=== PATIENT | male | born 1970 | race Caucasian/White ===

== ENCOUNTER 2018-05-25 00:19 | Emergency (ER) | payer OTHER, SELFPAY ==
[2018-05-25] VITALS (10 sets, daily range): BP systolic 91–124; BP diastolic 56–83; PULSE 49–83; RESP 13–19; TEMP 37.3; O2SAT 96–99; BMI 26.3
--- NOTE | 2018-05-25 00:20 | ED.RN ---
RN CALLED FOR EKG, NO OLD EKGS IN MUSE
--- NOTE | 2018-05-25 00:36 | ED.RN ---
PT WITH PERIOD OF BRADYCARDIA. PT REPORTS DIZZINESS, BECAME PALE AND DIAPHORETIC. PT PLACED ON 2L NC. INSTRUCTED TO LAY HEAD BACK AND TAKE DEEP BREATHS. THIS RN CALLED FOR REPEAT EKG And notified dr. carbone. dr. carbone at bedside with pt.
--- NOTE | 2018-05-25 00:42 | EKG12_ITS ---
Test Reason : CP Blood Pressure : / mmHG Vent. Rate : 082 BPM Atrial Rate : 082 BPM P-R Int : 170 ms QRS Dur : 092 ms QT Int : 376 ms P-R-T Axes : 046 044 033 degrees QTc Int : 439 ms Normal sinus rhythm Incomplete right bundle branch block Cannot rule out Inferior infarct , age undetermined Abnormal ECG Confirmed by MINERVA GOTTI ([id number]), manuscript editor JEIMY MORRISON ([id number]) on 05/28/2018 1:27:04 PM Referred By: LAUREN Confirmed By:MINERVA GOTTI
--- NOTE | 2018-05-25 00:42 | RAD_ITS ---
STUDY: X-RAY CHEST REASON FOR EXAM: Male, 48 years old. Chest pain TECHNIQUE: Single frontal view of the chest. COMPARISON: None. FINDINGS: Chronic interstitial lung changes without superimposed acute alveolar disease. There is no demonstrated pleural abnormality. Normal size heart. Normal mediastinum and maryam. Normal visualized pulmonary arteries. Normal visualized aortic arch and descending thoracic aorta. Normal visualized thoracic spine. Normal visualized ribs, clavicles, and shoulders. There is no demonstrated abnormality of the visualized soft tissue structures of the upper abdomen. RAD/Chest 1 View (Portable) IMPRESSION: Chronic interstitial lung changes without superimposed acute alveolar disease. Electronically Signed: Trent Dupont MD at 1:16 EST Tel , Service support ,
--- NOTE | 2018-05-25 00:44 | ED.VIS.GEN ---
History of Present Illness Chief Complaint: Chest Pain Informant: Patient, Family Onset: Hours - 6 Context: Gradual Onset - at rest Timing: Continuous Quality: ache Location: epigastric / lower central chest Current Severity: Mild Maximum Severity: Moderate Worsened by: deep breathing somewhat Relieved by: nothing in particular Associated Symptoms: left shoulder pain (first symptom), nausea Narrative: Patient has never had these symptoms before. No past medical history, non-smoker. 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 Denies any numbness. No pain in his jaw or into his back, no sharp tearing pains. No recent travel, hospitalization, or surgery. No leg pain or swelling. No history of DVT or PE. Prior to my seeing the patient, EKG was performed, then an IV was placed and blood was drawn and soon thereafter he started feeling lightheaded, he got sweaty and felt like he was going to pass out. He became bradycardic into the 40s, he did not lose consciousness. He states he has had a reaction like that before when he was shown a needle. On the rhythm strip, his IA interval was consistent and normal-appearing. He gradually recovered while I was at the bedside to a normal heart rate without any changes in morphology. Past Medical History - Allergies and Home Meds Allergies/Adverse Reactions: Allergies No Known Allergies Allergy (Verified 05/25/18 00:21) Primary Care Physician: Juan Valdez MD [Primary Care Provider] - Past Medical History: None Surgical History: no surgical history Lives: Spouse/ Significant Other Smoking Status: Never smoker Drugs: None Review of Systems General: Reports: Sweats. Denies: Chills, Fever Eyes: Denies: Visual changes - bilaterally, Diplopia ENT: Denies: Rhinorrhea, Sore throat Cardiovascular: Reports: Chest pain. Denies: Palpitations, Heart racing Respiratory: Denies: Dyspnea, Cough, Dyspnea on exertion Gastrointestinal: Reports: Nausea. Denies: Abdominal pain, Vomiting, Diarrhea, Melena, Hematochezia Genitourinary: Denies: Dysuria, Hematuria, Frequency Musculoskeletal: Reports: Extremity Pain - left shoulder. Denies: Neck pain, Back pain Skin: Denies: Rash, Wounds Neurological: Denies: Headache, Weakness, Numbness Physical Exam Vital Signs/Narrative: Vital Signs Temp Pulse Resp BP Pulse Ox 05/25/18 00:36 49 L 17 91/56 L 99 05/25/18 00:21 99.1 F 83 18 124/83 H 97 Inital Vital Signs reviewed: Yes General: Well nourished, Well developed, No Acute Distress Head: Normocephalic, Atraumatic Eyes: Perrl, EOMI ENT: Moist mucous membranes, No rhinorrhea Neck: Supple, Nontender Cardiovascular: Regular rate, Regular rhythm, No murmurs, Normal S1, Normal S2 Respiratory: No distress, CTA bilaterally, Chest nontender, - - no splinting on deep inspiration Abdomen: Soft, Nontender, Nondistended, Normal bowel sounds Back: Nontender, Normal Inspection Extremities: Nontender, No edema. Negative for: Calf Tenderness Skin: Normal color, No rash, No Trauma, - - clammy during exam Neurological: Alert, Oriented x3, Cranial nerves II-XII grossly intact, Normal Strength, Normal Sensation Psychological: Normal affect, Normal Mood Diagnostic/Tx/Re-eval Impressions Chest X-Ray 05/25/18 00:42 IMPRESSION: Chronic interstitial lung changes without superimposed acute alveolar disease. Electronically Signed: Trent Dupont MD at 1:16 EST Tel , Service support , 05/25/18 00:42 Chest 1 View (Portable) [RAD] Stat Laboratory Results 05/25/18 05/25/18 05/25/18 00:30 00:30 00:30 WBC 8.8 RBC 4.97 Hgb 15.6 Hct 46.1 MCV 92.8 MCH 31.4 MCHC 33.8 RDW 12.9 RDW Differential 43.2 Plt Count 243 MPV 9.5 Immature Gran % (Auto) 0.200 Neut % (Auto) 74.9 H Lymph % (Auto) 14.0 L [place] % (Auto) 8.8 Eos % (Auto) 2.0 Baso % (Auto) 0.1 Absolute Neuts (auto) 6.6 Absolute Lymphs (auto) 1.23 Total Counted Not Reportable D-Dimer Quant (PE/DVT) < 0.27 L Sodium 139 Potassium 3.6 Chloride 104 Carbon Dioxide 29.0 Anion Gap 6 BUN 19 H Creatinine 1.25 Estim Creat Clear Calc 77.60 Est GFR (MDRD) Af Amer 79 Est GFR (MDRD) Non-Af 65 BUN/Creatinine Ratio 15.2 Glucose 98 Calcium 8.3 L Troponin I < 0.015 05/25/18 03:30 WBC RBC Hgb Hct MCV MCH MCHC RDW RDW Differential Plt Count MPV Immature Gran % (Auto) Neut % (Auto) Lymph % (Auto) Port[place] % (Auto) Eos % (Auto) Baso % (Auto) Absolute Neuts (auto) Absolute Lymphs (auto) Total Counted D-Dimer Quant (PE/DVT) Sodium Potassium Chloride Carbon Dioxide Anion Gap BUN Creatinine Estim Creat Clear Calc Est GFR (MDRD) Af Amer Est GFR (MDRD) Non-Af BUN/Creatinine Ratio Glucose Calcium Troponin I < 0.015 - Rhythm Strip Rhythm Strip: Sinus Rhythm Rate: 70 Ectopy: None - EKG Initial EKG Interpretation: Sinus Rhythm, No Acute Injury Pattern, - - RSR' V1. Isolated Q waves III. Otherwise, nml EKG and nml axis. Prior: No Prior - Medical Decision Making Patient has a RIZWANA risk score of 0 and a heart score of 2, 1 for age and 1 for history. His troponin is negative and his EKG is normal. He preferred not to be admitted when offered, so we performed a 3-hour repeat troponin, which was also negative for a delta of 0. He did have some mild improvement with nitroglycerin but still felt the discomfort, it was in the same location, central caudal chest, and somewhat pleuritic but not sharp. His d-dimer is negative, ruling out pulmonary embolism in context, in addition to DVT which he has no symptoms of. I gave him a GI cocktail, it did not seem to make a big difference although he overall felt better with continued observation in the ED. He had taken several ibuprofen prior to coming, did not seem to make a big difference, this is unlikely pleurisy but it could be esophageal in nature. I think he is stable to be discharged home given the heart pathway; this gives him less than 1% risk of an acute myocardial event in the next 30 days, he was advised to follow-up and will likely need an outpatient cardiac stress test. He understands this and is comfortable with this plan. ED Disposition - Plan for ED Patient: Disposition: Home or Assisted Living Diagnosis: Chest pain, unspecified Instructions: ED Chest Pain Atypical Unkn Cause Referrals: Juan Valdez MD [Primary Care Provider] - (call for appt this or next week)
[2018-05-25] MEDS: Aspirin 81 MG TAB.CHEW 162 MG PO (00:51)
[2018-05-25 00:57] LABS: Absolute Lymphocyte Count 1.23 X10^3/ul (0.83-4.51); Absolute Neutrophil Count 6.6 X10^3/uL (2.0-7.7); Basophil# 0.01 X10^3/uL; Basophil% 0.1 % (0-1); Eosinophil# 0.18 X10^3/uL; Hematocrit 46.1 % (40-54); Hemoglobin 15.6 g/dl (13.0-16.5); Lymphocyte # 1.23 X10^3/ul (4.0); Mean Corp Hgb Conc 33.8 g/gl (32-36); Mean Corpuscular Hgb 31.4 pg (27.0-32.0); Mean Corpuscular Volume 92.8 fL (80-94); Mean Platelet Vol. 9.5 fl (6.2-12.0); Monocyte# 0.77 X10^3/uL; Monocyte% 8.8 % (0-10); Neutrophil # 6.58 X10^3/uL (2.7-7.7); Neutrophil % 74.9 % (47-70); Platelet Count 243 K/mm3 (150-450); RBC Distribution Width CV 12.9 % (11.6-14.6); RBC Distribution Width SD 43.2 fl (35.1-43.9); Red Blood Count 4.97 M/mm3 (4.6-6.2); White Blood Count 8.8 K/mm3 (4.4-11.0)
[2018-05-25 00:58] LABS: POSITIVE COUNT NO; POSITIVE DIFFERENTIAL NO; POSITIVE MORPHOLOGY NO
[2018-05-25 01:04] LABS: D-Dimer Quantitative (DVT/PE) < 0.27 FEU/ug/m (0.27-0.49)
[2018-05-25 01:10] LABS: Anion Gap 6 (5-15); BUN 19 mg/dL (7-18); BUN/Creat Ratio 15.2 RATIO (10-20); Calcium,Total 8.3 mg/dL (8.5-10.1); Chloride 104 mmol/L (98-107); Creatinine, Serum 1.25 mg/dL (0.70-1.30); EST Glomerular Filtration Rate 65 mL/min (>60); Est Glom Filt Rate - Afr Amer 79 mL/min (>60); Glucose 98 mg/dL (74-106); Potassium 3.6 mmol/L (3.5-5.1); Sodium Level 139 mmol/L (136-145)
[2018-05-25] MEDS: 0.9% Normal Saline 1,000 ML 1000 ML IV (01:12)
[2018-05-25] MEDS: Ondansetron 4 MG/2 ML Vial IV (01:23)
[2018-05-25] MEDS: Mag Hydrox/Al Hydrox/Simeth 30 ML UDC PO (02:41)
== END 2018-05-25 04:21 | disposition home or self-care (01) ==
PROVIDERS: Emergency Provider Emergency Medicine; Family Provider Family Medicine; PCP Family Medicine
DX: R07.9 Chest pain, unspecified (principal); M25.512 Pain in left shoulder; R11.0 Nausea
CPT/HCPCS: 71045; 80048; 84484; 85025; 85379; 93005; 96361; 96374; 99285; J7030; A4216; J2405

== ENCOUNTER 2021-03-28 16:02 | Outpatient (CLI) | payer OTHER, SELFPAY | END 2021-03-28 23:59 | disposition home or self-care (01) | LOC: LABSPEC 16:02 | PROVIDERS: PCP Family Medicine; Visit Provider Nurse Practitioner Family | DX: Z00.00 Encounter for general adult medical examination without abnormal findings (principal) ==

== ENCOUNTER 2023-02-13 07:26 | Outpatient (RCR) | payer OTHER, SELFPAY ==
--- NOTE | 2023-02-13 08:15 | HP.PTEVAL_ITS ---
Patient's Visit Information Visit Information Visit Information: REGI PHIPPS is a 52 year old M referred to Physical Therapy by Dr. Cory Gorman MD with a diagnosis of rupture L biceps tendon head.. Date of Evaluation: 02/13/23 Physical Therapist: Moshe Schuster, DPT, OCS, CSCS Visit Plan Frequency: 1-2x /Week Duration: 4-6 Weeks Plan: 1-2x/week for 4 weeks in plan to work on management, strength cuff and positioning. Pt wishes to hold on therapy until after MRI and will call at that point. if returns, will treat with education, strength cuff and posture. Subjective Subjective: Needs MRI on shoulder and will need four weeks of PT. 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 That was 3 months ago. Family doctor told him to take ibuprofen adn put in a sling while out of town. Got annette horses in muscle when he tried to use it. Orthos said live with it unless it gives him discomfort. No prior shoulder pain. Played softball, worked and pain kept getting worse. Now has hard time sleeping. No pain at rest. Does have pain lifting or doing job. 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 Can lift by body but not away from body. Discomfort with dressing also. Pain L shoulder: Pain Intensity (Out of 10): 0 Pain Intensity Range: 0 and 2 Objective Objective: Pt ambulates and transfers I therapy without difficulty. No pain at rest. Full aROM B shoulders and elbows and wrists without pain except long lever arm abd and end range flexion in anterior shoulder. Protracted scap posture and forward head. Tender to touch L anterior shoulder near biceps tendon groove. ball of muscle in L bicep area not present on R. reflexes 2/3 bi and triceps. sensation UE WNL to gross light touch. strength thumb wrist and elbow 5/5 without pain. shoulder flexion 4 and slight pain LLA, abduction 4- L and pain LLA. R side 5/5 without pain. scapular ROM WNL cervical aROM WFL and without pain. Balance/Special Test Scores Quick DASH Score: 34.0900 Goals Goal 1:: I appropriate management of condition including strength L shoulder and posture Goal Time Frame: 4-6 Weeks Goal 2:: Pain free at night to sleep through night Goal Time Frame: 4-6 Weeks Goal 3:: 15 quick dash or better Goal Time Frame: 4-6 Weeks Rehabilitation Potential Physical Therapy Diagnosis: pain in L shoulder with sleeping and usage of arm. Rehabilitation Potential: Questionable Anticipated Interventions Patient/Client Instruction: Educate patient on: Condition and Plan of Care For the Purpose of:: To decrease pain and To decrease swelling/inflammation Therapeutic Exercise to Include: Strength training and Postural training For the Purpose of:: To decrease pain, To decrease swelling/inflammation and To improve nutrient delivery to tissue Text: Thank you for the opportunity to evaluate your patient. For Medicare and Medicare HMO plans, please review the plan of care and approve it. It will need to be FAXED BACK to us at [phone] for Medicare purposes. For Medicare only, by signing this I certify the plan of care. Please let me know if there are questions or concerns regarding this plan of care. Physician Signature: Date:
--- NOTE | 2023-04-06 08:21 | HP.PT.NRP ---
Patient Information Patient Information: REGI PHIPPS was seen in my office for initial evaluation on 02/13/23. The following Plan of Care was established for this patient: POC Established Initial Frequency: 1-2x /Week Initial Duration: 4-6 Weeks Anticipated Interventions Patient/Client Instruction: Educate patient on: Condition and Plan of Care For the Purpose of:: To decrease pain and To decrease swelling/inflammation Therapeutic Exercise to Include: Strength training and Postural training For the Purpose of:: To decrease pain, To decrease swelling/inflammation and To improve nutrient delivery to tissue Last Seen Last Seen: This patient was last seen in our office 02/13/23. Pertinent comments regarding their Physical therapy will appear below: Pt seen for IE and no further visits attended At this point, it has been over 6 weeks and I will discontinue due to nonattendance. At this point I will be discontinuing this patient from physical therapy. I would be happy to see this patient again in the future if found appropriate by the physician. Thank you! Moshe Schuster, DPT, OCS, CSCS Balance/Gait/Functional tests Balance/Special Test Scores Quick DASH Score: 34.0900
== END 2023-02-13 19:00 | disposition home or self-care (01) ==
LOC: PT 07:26
PROVIDERS: PCP Family Medicine; Visit Provider Orthopaedic Surgery Sports Medicine
DX: S46.112D Strain of muscle, fascia and tendon of long head of biceps, left arm, subsequent encounter (principal); M25.512 Pain in left shoulder
CPT/HCPCS: 97161

== ENCOUNTER → 2023-03-06 | Outpatient (CLI) | payer OTHER, SELFPAY ==
--- NOTE | 2023-03-06 07:45 | RAD_ITS ---
STUDY: X-RAY - ORBITS REASON FOR EXAM: Male, 52 years old. This study is being performed as a clearance examination for exclusion of orbital metal, prior to the performance of an MRI examination. TECHNIQUE: 2 view(s) of the orbits were obtained. COMPARISON: None. FINDINGS: Normal bilateral orbits without a metallic orbital foreign body. Normal visualized facial bones. Normal paranasal sinuses. The soft tissue structures are unremarkable. RAD/Orbits for Foreign Body IMPRESSION: No demonstrated metallic orbital foreign body. The patient is cleared for an MRI examination. Electronically Signed: Chaitanya Swan MD at 8:18 EST ,
--- NOTE | 2023-03-06 07:46 | MRI_ITS ---
STUDY: MRI LEFT SHOULDER REASON FOR EXAM: Male, 52 years old. Rule out cuff tear, history of LHB rupture. TECHNIQUE: Standardized fat and water weighted pulse sequences were obtained in all 3 orthogonal planes. COMPARISON: Left shoulder radiographs dated 10/28/2022. FINDINGS: There is mild supraspinatus, infraspinatus, and subscapularis tendinosis without a full-thickness tear. Normal teres minor tendon. Normal supraspinatus muscle. Normal infraspinatus muscle. Normal subscapularis muscle. Normal teres minor muscle. There is subchondral cyst formation in the posterior-inferior glenoid. The intracapsular long biceps tendon is absent, compatible with a tear/rupture. Normal humeral head and visualized proximal humerus. Normal labrum. Normal capsulo-ligamentous complex. There is minimal acromioclavicular arthrosis. There is a Type II morphology (curved), with a neutral orientation. There is no subacromial-subdeltoid bursal fluid. Normal visualized coracohumeral and coracoacromial ligaments. Normal quadrilateral space. Normal axillary space. Normal deltoid muscle. Normal trapezius muscle. MRI/Upper Ext Joint Only(Routine) IMPRESSION: Mild supraspinatus, infraspinatus, and subscapularis tendinosis without a full-thickness rotator cuff tear. Minimal acromioclavicular arthrosis. Subchondral cyst formation in the posterior-inferior glenoid. Intracapsular long biceps tendon tear/rupture. Electronically Signed: Omar Atkinson MD at 9:54 EST ,
== END | disposition home or self-care (01) ==
PROVIDERS: PCP Family Medicine; Referring Provider Orthopaedic Surgery Sports Medicine; Visit Provider Orthopaedic Surgery Sports Medicine
DX: S46.112A Strain of muscle, fascia and tendon of long head of biceps, left arm, initial encounter (principal); M25.512 Pain in left shoulder; X58.XXXA Exposure to other specified factors, initial encounter
CPT/HCPCS: 70030; 73221

== ENCOUNTER 2023-05-27 05:28 | Day surgery (SDC) | payer OTHER, SELFPAY ==
[2023-05-27] VITALS (7 sets, daily range): BP systolic 122–135; BP diastolic 81–99; PULSE 63–91; RESP 15–16; TEMP 36.2–36.3; O2SAT 92–97; BMI 28.0
--- NOTE | 2023-05-27 06:32 | EKG12_ITS ---
Test Reason : PRE-OP Blood Pressure : / mmHG Vent. Rate : 062 BPM Atrial Rate : 062 BPM P-R Int : 178 ms QRS Dur : 100 ms QT Int : 408 ms P-R-T Axes : 022 017 006 degrees QTc Int : 414 ms Normal sinus rhythm Nonspecific T wave abnormality Abnormal ECG Confirmed by Stanislav Gonzalez ([id number]), newspaper editor ASH MORGAN ([id number]) on 06/02/2023 8:20:46 AM Referred By: Juan Valdez Confirmed By:Stanislav Gonzalez
[2023-05-27] MEDS: Lactated Ringers 1,000 ML 15 ML IV (06:38)
[2023-05-27 06:52] LABS: Hematocrit 47.9 % (40-54); Hemoglobin 16.3 g/dL (13.0-16.5); Mean Corpuscular Hgb 30.8 pg (27.0-32.0); Mean Corpuscular Volume 90.5 fL (80-94); Mean Platelet Vol. 9.1 fl (6.2-12.0); Platelet Count 295 K/mm3 (150-450); RBC Distribution Width CV 12.9 % (11.6-14.6); RBC Distribution Width SD 42.4 fl (35.1-43.9); Red Blood Count 5.29 M/mm3 (4.6-6.2); White Blood Count 6.5 K/mm3 (4.4-11.0)
--- NOTE | 2023-05-27 07:21 | HP.PCM_ITS ---
HPI - General HPI Narrative REGI PHIPPS, is a 53 M who presents for left shoulder arthroscopy, subacromial decompression and biceps tenodesis. No changes to history and physical exam. Patient pending a block. I marked the left shoulder updated the consent. Risks alternatives benefits discussed as well as postop instructions and narcotic counseling discussed with the patient as well as his . They both understand no further questions or concerns okay to proceed. MR#: [id number] Acct: [id number] Name: REGI PHIPPS Rep #: [id number] : 1970 Provider: Dr. Cory Gorman MD Age/Sex: 52/M [place] [facility] [place] Status: Signed Intake Vital Signs 10/28/2308:13 Height 6 ft Intake Visit Reasons: LEFT BICEP Chief Complaint: MRI review Allergies Penicillins Adverse Reaction (Severe, Verified 03/19/23 15:13) Hives Medications ibuprofen 200 mg tablet 600 mg PO Q6H PRN 10/28/22 [History Confirmed 01/29/23] omeprazole 20 mg capsule,delayed release 20 mg PO DAILY 10/28/22 [History Confirmed 01/29/23] PFSH Medical History Bilateral primary osteoarthritis of knee Left knee pain Left shoulder pain Right knee pain Rupture of left long head biceps tendon Surgical History Hx of vasectomy Social History Smoking Status: Never smoker alcohol intake: current alcohol intake frequency: a few times a week HPI LEFT BICEP Details: This documentation accurately reflects the service provided and the decisions made by me, Dr. Cory Gorman MD 03/19/23 1413. Part of today?s visit was documented by [ ], acting as scribe. REGI PHIPPS is a 52 year old M here today for FU L shoulder MRI to rule out additional pathologies after LHB rupture. 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 Ortho Exam General General: Yes no acute distress Neurologic: Yes alert and Yes oriented x3 Psychologic: Yes reasonable and appropriate Left Shoulder Skin/Wound: Yes CDI, Yes ecchymosis, No erythema and Yes swelling Testing: Yes Hawkin's, Yes Neer's, Yes TTP Biceps, No TTP AC Joint, No Drop Arm, Yes Yergason's, Yes AROM-Forward Elevation 0-180, Yes PROM-External Rotation at side 0-60, No Apprehension Test, No Sulcus Sign, No translation, Yes empty can and Yes belly press normal SHOULDER: 'hung' deformity, distalization of biceps, pain at LHB and mildly at biceps muscle, normal hook test, intact distal biceps, nvi, strong cuff function 07/25 FE and er. Supplemental Info [facility] [address] [place] [address] Upper Ext Joint Only(Routine) MR#: [id number] Acct: [id number] Name: REGI PHIPPS Rep #: [id number] : 1970 M 52 From: Omar Atkinson MD PCP: Dr. Juan Valdez MD Status: REG CLI Study: Upper Ext Joint Only(Routine) Date of Exam: 03/06/23 Exam# [id number] Ordering Dr: Cory Gorman MD STUDY: MRI LEFT SHOULDER REASON FOR EXAM: Male, 52 years old. Rule out cuff tear, history of LHB rupture. TECHNIQUE: Standardized fat and water weighted pulse sequences were obtained in all 3 orthogonal planes. COMPARISON: Left shoulder radiographs dated 10/28/2022. FINDINGS: There is mild supraspinatus, infraspinatus, and subscapularis tendinosis without a full-thickness tear. Normal teres minor tendon. Normal supraspinatus muscle. Normal infraspinatus muscle. Normal subscapularis muscle. Normal teres minor muscle. There is subchondral cyst formation in the posterior-inferior glenoid. The intracapsular long biceps tendon is absent, compatible with a tear/rupture. Normal humeral head and visualized proximal humerus. Normal labrum. Normal capsulo-ligamentous complex. There is minimal acromioclavicular arthrosis. There is a Type II morphology (curved), with a neutral orientation. There is no subacromial-subdeltoid bursal fluid. Normal visualized coracohumeral and coracoacromial ligaments. Normal quadrilateral space. Normal axillary space. Normal deltoid muscle. Normal trapezius muscle. MRI/Upper Ext Joint Only(Routine) IMPRESSION: Mild supraspinatus, infraspinatus, and subscapularis tendinosis without a full-thickness rotator cuff tear. Minimal acromioclavicular arthrosis. Subchondral cyst formation in the posterior-inferior glenoid. Intracapsular long biceps tendon tear/rupture. Electronically Signed: Omar Atkinson MD at 9:54 EST Reading Location ID and State: [facility] / [place] , Service support , Coding Level of Care Code Off vis,est,level 3 Diagnoses Left shoulder pain M25.512 Rupture of left long head biceps tendon S46.112A Assessment and Plan Assessment and Plan (1) Left shoulder pain: Status: Acute Plan: 52-year-old man with continued pain after a long head of biceps rupture left shoulder. MRI shows no cuff tear. Surgery would be in the form of a left shoulder arthroscopy, subacromial decompression and biceps tenodesis. Tenodesis a bit unreliable in terms of fixing biceps cramping and pain results favorable in about half of patients. Some of his pain could be coming as well from impingement syndrome so do recommend arthroscopy at the time of subpectoral biceps tenodesis. Pros and cons risks and benefits were discussed with the patient including but not limited to infection, pain, stiffness, bleeding, damage to surrounding structures, neurovascular injury, recurrence or retear, failure or wear of hardware or fixation, instability, fracture, deep vein thrombosis and pulmonary embolism, anesthetic risks, , patient dissatisfaction, need for further surgery and other risks. Patient understood and wished to proceed with surgery, and signed the informed consent documentation. Patient wishes to proceed in May, signed consent today. (2) Rupture of left long head biceps tendon: Status: Acute [facility] Medical History (Updated 05/12/23 @ 09:17 by Shereen Aguilar) Alcohol use Back pain Bilateral primary osteoarthritis of knee Gastric reflux History of pain when walking History of stress test Injury of head and neck Left knee pain Left shoulder pain Leg cramps Non-smoker Redness of skin Right knee pain Rupture of left long head biceps tendon Shortness of breath on exertion Home Medications ibuprofen 200 mg tablet 600 mg PO Q6H PRN pain 10/28/22 [History Last Taken Unknown] omeprazole 20 mg capsule,delayed release 20 mg PO DAILY 10/28/22 [History Last Taken Unknown] ascorbic acid (vitamin C) 1,000 mg tablet,extended release (C Complex) 1,000 mg PO DAILY 05/12/23 [History Last Taken Unknown] zinc gluconate 50 mg tablet 100 mg PO DAILY 05/12/23 [History Last Taken Unknown] Allergy/AdvReac Type Severity Reaction Status Date / Time Penicillins AdvReac Severe Hives Verified 05/27/23 06:02 Surgical History (Updated 05/12/23 @ 09:17 by Shereen Aguilar) Hx of vasectomy Social History Smoking Status: Never smoker alcohol intake: current alcohol intake frequency: a few times a week Vital Signs Vital Signs Vital Signs: 05/27/23 06:10 05/27/23 06:10 Temperature 97.2 F L Temperature Source Temporal Pulse Rate 63 Respiratory Rate 16 Respiratory Pattern Normal Blood Pressure 125/81 H Blood Pressure Mean 95 Blood Pressure Source Monitor Blood Pressure Position Semi-Fowlers Blood Pressure Location Right Arm Pulse Ox 94 Oxygen Delivery Method Room Air Weight Weight: 207 lb 3.752 oz Body Mass Index (BMI) 28.0 Results Lab / Micro Data 05/27/23 06:36 Labs: Laboratory Results - last 24 hr 05/27/23 06:36: WBC 6.5, RBC 5.29, Hgb 16.3, Hct 47.9, MCV 90.5, MCH 30.8, MCHC 34.0, RDW Std Deviation 42.4, RDW Coeff of Lizette 12.9, Plt Count 295, MPV 9.1
[2023-05-27] MEDS: Cefazolin 2 GM in 0.9% Normal Saline (100mL Bag) 100 ML IV (07:30)
[2023-05-27] MEDS: Epinephrine (1 mg/ml) 1 MG/ML VIAL (08:19)
--- NOTE | 2023-05-27 08:52 | OP.PCM_ITS ---
Problems Associated Problem List Diagnoses (1) Left shoulder pain: (2) Rupture of left long head biceps tendon: (3) Impingement of left shoulder: Report of Operation Date of Procedure: 05/27/23 Pre-Operative Diagnosis: Left shoulder impingement syndrome and rupture of the l tex head of the biceps tendon Post-Operative Diagnosis: Same Surgery/Procedure Performed:: Left shoulder arthroscopy, subacromial decompression, limited debridement, biceps tenodesis separate open incision subpectoral Surgeon: Cory Gorman Type of Anesthesia: Block,Regional and General Anesthesiologist: Leighton Go Estimated Blood Loss (mL): 20 Description of Procedure: Patient brought to the operating room theater. Placed supine on the table. General anesthesia induced. 2 g IV Ancef administered prior to the start of the procedure. All bony prominences padded. Patient transferred left side up lateral decubitus beanbag positioner. Axillary roll placed. SCDs on the legs. Upper extremity prepped and draped in the usual sterile fashion with chlorhexidine-based prep solution allowing over 3 minutes drying time prior to draping. 10 pounds of inline traction with the arm in 35 degrees of abduction was used. Preoperative timeout performed to confirm the site patient and the surgery. Began by doing a arthroscopy of the shoulder. Used a standard posterior arthroscopy portal to insert the arthroscope into the intra-articular portion of the shoulder. Cartilage on the glenoid and humeral head was normal. Slight fraying of the labrum especially superiorly where the long head biceps had torn. I performed inside-out spinal needle localized anterior portal through the rotator interval just posterior to the location of the biceps tendon. Did a gentle debridement of the anterior and superior labrum. Also did debridement slightly at the undersurface rotator cuff with some mild synovitis and used cautery to remove any synovitis in that area. Undersurface of the rotator cuff appeared normal as did the subscapularis. I took arthroscopy pictures and saved them onto the system throughout. Gutter - no loose body. Next I placed the scope in the subacromial space established a lateral portal. I did a debridement of a moderate amount of inflammatory bursitis down to the gutters completely inside the subacromial space. I did a subacromial decompression with a high-speed simran instrument for about 3 mm left the CA ligament intact. Mild downsloping the acromion. This was corrected to flat undersurface. Probed the rotator cuff tendon and this was found to be intact with no tears. Arthroscope was withdrawn. Next I turned my attention to the biceps tenodesis open part of the operation. Made a small 1.5 inch incision centered over the proximal anteromedial aspect of the humerus directly over the long head of the biceps tendon rupture and the site of the Flaco deformity.. Dissection down through skin and subcutaneous tissue to meticulous hemostasis. I retracted and protected the cephalic vein I retracted this laterally. Identified the long head of the biceps. I released a quite bit of scar tissue to mobilize this. In the groove it was completely adhesed and impossible to release without damage to the subscapularis, therefore I cut the biceps with as much length as possible. I delivered this through the skin incision. I placed an Allis clamp on the end of this. I used the Arthrex 'tension tight' button with #5 braided nonabsorbable suture and a fiber link co nfiguration with luggage tag type stitch and then passed the suture from anterior to posterior just distal to this for locking loop configuration. I then drilled unicortical hole just distal to the pectoralis major insertion. I ensured that this was under appropriate tension. I passed the suture through the tension type button. I passed the button through the unicortical hole flipped the button and delivered the tendon down to the repair site by pulling on the free end of the suture. This achieved good tension and repair of the tendon I cut the suture short and this was a knotless repair. I thoroughly irrigated the wounds followed by closure subcutaneous tissue with 2-0 Vicryl suture skin with 3-0 Monocryl. Skin cleaned with wet dry dressing followed application of Steri-Strips Adaptic 4 x 4 gauze ABD dressing tape and sling for the upper extremity. Patient woken up from a general anesthetic transferred off the operating table and taken to postanesthetic care unit in stable condition. All sponge and instrument counts were correct no complications. cpt 84919, 34029, [id number]? Complications none Admit VTE Documentation VTE Present on Admission: No VTE Mechan Device Prophylaxis: SCD's Reason prophylaxis not ordered:: Treatment Not Indicated Multi Select Codes Musculoskeletal Musculoskeletal CPT Codes: Other Procedure See Report
--- NOTE | 2023-05-27 09:02 | DCINST_ITS ---
Discharge Instructions Diet Discharge Diet: No restrictions Activity Discharge Activity: May Not Drive Ice area for (Minutes): 10 Lifting Restrictions: pendulums and elbow ROM 4x/day, no lifting over 1 pound Dressing / Incision Call your doctor if your incision/area has: Continuous Slow Oozing, Sudden Increased Bleeding, Increased Pain/ Swelling, Increased Redness, Foul Smelling Discharge and Swelling at the incision site Remove Dressing in: leave in place till F/U Cleanse incision/area with: Do not get Incision Wet Follow Up Care Please Follow Up With: Cory Gorman MD When: 2 days Test Results: Test results from this visit will be discussed in further detail at your follow- up appointment, if applicable. Discharge Plan Admission Attending Provider: Cory Gorman Primary Care Provider: Juan Valdez Instructions Patient Instructions: After Shoulder Arthroscopy Discharge Orders/Prescriptions Prescriptions: New oxycodone-acetaminophen [Endocet] 5-325 mg tablet 1 tab PO Q4H MDD 6 PRN (Reason: pain) 5 Days Qty: 30 0RF No Action omeprazole 20 mg capsule,delayed release(DR/EC) 20 mg PO DAILY ibuprofen 200 mg tablet 600 mg PO Q6H PRN (Reason: pain) C Complex 1,000 mg tablet extended release 1,000 mg PO DAILY zinc gluconate 50 mg tablet 100 mg PO DAILY Referrals / Follow Up: Juan Valdez MD [Primary Care Provider] - Cory Gorman MD [Med Staff - Active Staff] - Disposition Disposition (needs filled in before D/C Order can be placed): Home, Self Care
== END 2023-05-27 11:47 | disposition home or self-care (01) ==
LOC: SDC 05:29 → AC 05:31
PROVIDERS: Anesthesiology; PCP Family Medicine; Referring Provider Family Medicine; Visit Provider Orthopaedic Surgery Sports Medicine
PROC: (CPT 29805; principal; 2023-05-27 07:10)
DX: M75.42 Impingement syndrome of left shoulder (principal); S46.112A Strain of muscle, fascia and tendon of long head of biceps, left arm, initial encounter; M19.012 Primary osteoarthritis, left shoulder; M17.0 Bilateral primary osteoarthritis of knee; Z79.1 Long term (current) use of non-steroidal anti-inflammatories (NSAID); Z79.899 Other long term (current) drug therapy
CPT/HCPCS: 29826; 29822; 23430; 01630; 64415; 85027; 93005; C1713; J7120; J2405

== ENCOUNTER 2024-03-20 17:36 | Observation (INO) | payer OTHER, SELFPAY ==
[2024-03-20] VITALS (13 sets, daily range): BP systolic 116–144; BP diastolic 60–89; PULSE 73–93; RESP 16–19; TEMP 36.6–37; O2SAT 94–99; BMI 27.1
--- NOTE | 2024-03-20 17:41 | ED.VIS.GI ---
HPI HPI - GI History of Present Illness Chief Complaint: Abd Pain Informant: patient Abdominal Pain/Flank Pain Onset: Today Context: Gradual Onset Timing: Continuous Quality: Cramping Location: RLQ Worsened by: - (Palpation) Relieved by: Nothing Nausea/Vomiting/Emesis GI Symptom: Positive for Nausea; Negative for Vomiting Diarrhea/Melena/Hematochezia GI Symptom: Negative for Diarrhea, Melena or Hematochezia Associated Symptoms Associated Symptoms: Negative for Dysuria, Frequency or Hematuria Narrative Narrative: Patient presents with abdominal pain that began today. Patient states it is gradually getting worse. Patient states the pain is over the right lower abdomen. Patient describes it as cramping. Patient states it is worse with palpation. Patient states nothing seems to make it better. Patient admits to some nausea and decreased appetite. Patient denies any vomiting. Patient denies any diarrhea, melena, or hematochezia. Patient denies any urinary complaints. [facility] Medical History Impingement of left shoulder Alcohol use Redness of skin Back pain Injury of head and neck Gastric reflux Non-smoker Shortness of breath on exertion Leg cramps History of pain when walking History of stress test Left shoulder pain Bilateral primary osteoarthritis of knee Left knee pain Right knee pain Rupture of left long head biceps tendon Home Medications ?Medication ?Instructions ?Recorded ?Last Taken ?Type omeprazole 20 mg capsule,delayed 20 mg PO DAILY 10/28/22 Unknown History release ascorbic acid (vitamin C) 1,000 mg 1,000 mg PO DAILY 05/12/23 Unknown History tablet,extended release (C Complex) Allergy/AdvReac Type Severity Reaction Status Date / Time Penicillins AdvReac Severe Hives Verified 03/20/24 19:47 Surgical History History of shoulder surgery Hx of vasectomy Social History Smoking Status: Current every day smoker tobacco type: cigarettes alcohol intake: current alcohol intake frequency: a few times a week ROS ROS ED Constitutional Constitutional ED: Reports chills and subjective; Denies fever(s) Eyes Eyes: Denies blurry vision or change in vision ENT ENT ED: Reports sore throat; Denies rhinorrhea Cardiovascular Cardiovascular: Denies chest pain or palpitations Respiratory/Chest Respiratory/Chest: Denies cough or dyspnea Gastrointestinal Gastrointestinal: Reports abdominal pain and nausea; Denies vomiting Genitourinary Genitourinary ED: Denies dysuria or hematuria Musculoskeletal Musculoskeletal: Denies back pain or neck pain Integumentary Denies abscess or rash Neurologic Neurologic: Denies headache(s) or weakness Allergic/Immunologic Allergic/Immunologic ED: Denies mouth swelling or urticaria EXAM Physical Exam Const Vital Signs: 03/20/24 17:37 03/20/24 18:39 03/20/24 19:00 Temperature 98.4 F 98.4 F 98.4 F Temperature Source Oral Oral Oral Pulse Rate 77 73 81 Respiratory Rate 16 18 16 Blood Pressure 144/89 H 126/89 H 126/78 H Blood Pressure Mean 107 101 94 Pulse Ox 99 97 96 Oxygen Delivery Method Room Air Room Air Room Air 03/20/24 19:25 Temperature 98.6 F Temperature Source Pulse Rate 82 Respiratory Rate 16 Blood Pressure 126/78 H Blood Pressure Mean 94 Pulse Ox 99 Oxygen Delivery Method Positive well nourished and well developed General Appearance ED: well developed and NAD HEENT Reports moist mucous membranes Neck supple and no JVD Resp normal respiratory effort and clear to auscultation bilaterally Cardio regular rate and regular rhythm GI non-distended Palpation: soft, tender RLQ, McBurney's point and Rovsing's sign and rebound tenderness present McBurney's point; Negative for guarding Back/Spine no CVA tenderness Neuro CN's II-XII intact bilaterally, moves all extremities and no sensory deficits noted Sensorium / Orientation: alert Motor Exam: strength 5/5 throughout Psych mental status grossly normal MDM MDM MDM Narrative Medical decision making narrative: Differential diagnosis includes appendicitis, mesenteric adenitis, ureteral calculus, viral gastroenteritis, urinary tract infection, pyelonephritis, and colitis. CBC will be obtained to assess for leukocytosis and anemia. Basic metabolic profile will be obtained to assess for electrolyte abnormality and renal function. Urinalysis will be obtained to assess for urinary tract infection and hematuria. CT scan of the abdomen and pelvis will be obtained to assess for appendicitis, mesenteric adenitis, and colitis. Lab Data Attestation: I reviewed the patient's lab results. Lab results narrative: CBC was reviewed. There is a leukocytosis of 14.4. The remainder is within normal limits. Basic metabolic profile was reviewed and was essentially within normal limits. Urinalysis was reviewed. There is no evidence of urinary tract infection or hematuria. Labs: Laboratory Results - last 24 hr 03/20/24 03/20/24 17:56 18:02 WBC 14.4 H RBC 5.15 Hgb 16.0 Hct 47.1 MCV 91.5 MCH 31.1 MCHC 34.0 RDW Std Deviation 42.7 RDW Coeff of [place] 12.7 Plt Count 272 MPV 9.1 Immature Gran % (Auto) 0.600 Neut % (Auto) 84.9 H Lymph % (Auto) 7.5 L [place] % (Auto) 5.4 Eos % (Auto) 1.3 Baso % (Auto) 0.3 Absolute Neuts (auto) 12.2 H Absolute Lymphs (auto) 1.07 Nucleated RBC % 0 Sodium 137 Potassium 3.4 L Chloride 105 Carbon Dioxide 28.0 Anion Gap 4 L BUN 21 H Creatinine 1.27 Estim Creat Clear Calc 72.13 Est GFR (MDRD) Af Amer 76 Est GFR (MDRD) Non-Af 62 BUN/Creatinine Ratio 16.5 Glucose 117 H Calcium 8.7 Urine Color Yellow Urine Clarity Clear Urine pH 6.0 Ur Specific [place] 1.015 Urine Protein Negative Urine Glucose (UA) Normal Urine Ketones Negative Urine Occult Blood 10 H Urine Nitrite Negative Urine Bilirubin Negative Urine Urobilinogen Normal Ur Leukocyte Esterase Negative Urine RBC 0-5 SEEN Urine WBC 0-5 SEEN Ur Squamous Epith Cells 0 SEEN Urine Bacteria RARE Urine Mucus RARE Radiography Diagnostic Testing: Clinical Impression(s) from Imaging Studies Abdomen/Pelvis CT 03/20/24 18:18 IMPRESSION: (NOT LISTED IN ORDER OF SIGNIFICANCE) Acute appendicitis. Other findings as above. Electronically Signed: Angelo Workman MD at 19:21 EST Reading Location ID and State: [facility] / [place] , Service support , ADDENDUM: 03/20/24 193 IMPRESSION: (NOT LISTED IN ORDER OF SIGNIFICANCE) Acute appendicitis. Other findings as above. N.B. : The above Results were Read Back by Angelo Workman MD to Moshe López DO, and understanding confirmed on 03/20/2024 19:24:14 (ET). Electronically Signed: Angelo Workman MD at 19:21 EST , CT scan of the abdomen pelvis was obtained. There is evidence of acute appendicitis. This was interpreted by the radiologist and was also independently reviewed by myself. Management Discussion w/another healthcare provider: Mortgage Servicing Specialist (Dr. Moise from general surgery) and Radiologist Treatment and Re-Evaluation :: Patient given IV fluids, morphine, and Zofran. Patient declined morphine. Patient was advised of his findings. Case was discussed with Dr. Moise. He will be in to evaluate the patient. Patient was given a dose of ertapenem. The patient will be taken to the operating room for appendectomy. Patient and family understand and are agreeable with the plan. All questions were answered. Discharge Plan Triage Chief Complaint: Abd Pain ED Provider: Moshe López Dx/Rx/DC Orders Clinical Impression: Acute appendicitis, Acute abdominal pain in right lower quadrant Primary Care Provider: Jeremiah Valdez Disposition Disposition: Acute Care Hospital [facility]
[2024-03-20 18:05] LABS: Absolute Lymphocyte Count 1.07 X10^3/uL (0.83-4.51); Absolute Neutrophil Count 12.2 X10^3/uL (2.0-7.7); Basophil# 0.05 X10^3/uL; Basophil% 0.3 % (0-1); Eosinophil# 0.19 X10^3/uL; Eosinophils% 1.3 % (0-5); Hematocrit 47.1 % (40-54); Lymphocyte # 1.07 X10^3/ul (0.83-4.51); Lymphocyte % 7.5 % (19-41); Mean Corpuscular Hgb 31.1 pg (27.0-32.0); Mean Corpuscular Volume 91.5 fL (80-94); Mean Platelet Vol. 9.1 fl (6.2-12.0); Monocyte# 0.77 X10^3/uL; Monocyte% 5.4 % (0-10); NRBC Flagged by Analyzer 0 % (0-5); Neutrophil % 84.9 % (47-70); Platelet Count 272 K/mm3 (150-450); RBC Distribution Width CV 12.7 % (11.6-14.6); RBC Distribution Width SD 42.7 fl (35.1-43.9); Red Blood Count 5.15 M/mm3 (4.6-6.2); White Blood Count 14.4 K/mm3 (4.4-11.0)
[2024-03-20] MEDS: 0.9% Normal Saline (1000mL) 1,000 ML 999 ML IV (18:06)
[2024-03-20] MEDS: Ondansetron 4 MG/2 ML Vial IV (18:06)
[2024-03-20 18:14] LABS: Squamous Epithelial Cells - UA 0 SEEN /hpf (0-5)
[2024-03-20 18:15] LABS: Color, Urine Yellow (Yellow); Glucose, Dipstick Normal (Normal); Ketone-Dipstick Negative (Negative); Leukocyte Esterase-Dipstick Negative /ul (Negative); Nitrite-Dipstick Negative (Negative); Occult Blood-Urine 10 /ul (Negative); Protein-Dipstick Negative (Negative); Specific Gravity, Urine 1.015 (1.002-1.030); Urine Bilirubin Dipstick Negative (Negative); Urine Clarity Clear (Clear); Urine Urobilinogen Normal (Normal)
--- NOTE | 2024-03-20 18:18 | CT_ITS ---
We are attempting to reach an attending provider to discuss findings. An addendum with communication details will be sent when the communication is complete. STUDY: CT Abdomen And Pelvis W/ Contrast Injection 03/20/2024 7:19 PM REASON FOR EXAM: Male, 53 years old. ABDOMINAL PAIN Right lower quadrant abdominal pain TECHNIQUE: Transaxial images were obtained without oral contrast, and IV 100mL Isovue-370 intravenous contrast. Individualized dose optimization techniques were used for this CT. COMPARISON: None FINDINGS: The visualized lung bases are unremarkable. The visualized portions of the heart are within normal limits. Unremarkable liver. Unremarkable gallbladder and extrahepatic biliary system. Unremarkable spleen. Unremarkable pancreas. Unremarkable bilateral adrenal glands. No acute findings of the right kidney. No acute findings of the left kidney. Unremarkable visualized stomach. Unremarkable small intestine. There are multiple colonic diverticula consistent with diverticulosis. There is a tubular, thick-walled appendix (16mm), consistent with acute appendicitis. Appendix is retrocecal. No abscess. There are no acute findings of the abdominal aorta. Unremarkable inferior vena cava. Unremarkable urinary bladder. There are prostatic calcifications. There is an umbilical hernia containing fat. Unremarkable osseous structures. CT/Abdomen/Pelvis W IV Cont ONLY IMPRESSION: (NOT LISTED IN ORDER OF SIGNIFICANCE) Acute appendicitis. Other findings as above. Electronically Signed: Angelo Workman MD at 19:21 EST ,
[2024-03-20 18:21] LABS: Anion Gap 4 (5-15); BUN 21 mg/dL (7-18); BUN/Creat Ratio 16.5 RATIO (10-20); Calcium,Total 8.7 mg/dL (8.5-10.1); Chloride 105 mmol/L (98-107); Creatinine, Serum 1.27 mg/dL (0.70-1.30); EST Glomerular Filtration Rate 62 mL/min (>60); Est Glom Filt Rate - Afr Amer 76 mL/min (>60); Estimated Creatinine Clearance 72.13 ml/min; Glucose 117 mg/dL (74-106); Potassium 3.4 mmol/L (3.5-5.1); Sodium Level 137 mmol/L (136-145)
[2024-03-20 18:22] LABS: Red Blood Cells-Urine 0-5 SEEN /hpf (0-5); White Blood Cells 0-5 SEEN /hpf (0-5)
[2024-03-20 18:24] LABS: Bacteria RARE /hpf (None Seen); Mucous, Urine RARE /hpf (<or=2+)
[2024-03-20] MEDS: Ertapenem Sod 1 GM in 0.9% Normal Saline (50mL MB+) 50 ML IV (19:46)
--- NOTE | 2024-03-20 20:14 | HP.PCM_ITS ---
HPI - General General Date of Admission: 03/20/24 Date of Service: 03/20/24 Chief Complaint: Acute onset right lower quadrant abdominal pain HPI Narrative REGI PHIPPS, is a 53 M who presents to [facility] with complaints of acute onset abdominal pain beginning between 4 and 5:00 this morning. He describes a crampy character to the pain. He found it strange that he got no relief after using the restroom and the pain only proved to be progressive. He confirms presence of some nausea, low-grade fevers, and poor appetite in association with the pain. He shares that he tried to apply a [place] ointment to his abdomen but as he rubbed his abdomen he found that the pain was very clearly localized in the right lower quadrant. Upon reaching this observation he shared his symptoms with his and she concluded that he must be checked out for possible appendicitis. Patient's ED workup notable for CBC with leukocytosis of 14.4. CT imaging of the abdomen pelvis was obtained showing evidence of acute appendicitis without abscess. Appendix was noted to measure 1.6 cm in diameter. Patient is relatively healthy and only claims diagnoses of GERD and arthritis. He denies any history of abdominal surgery. [facility] Medical History Impingement of left shoulder Alcohol use Redness of skin Back pain Injury of head and neck Gastric reflux Non-smoker Shortness of breath on exertion Leg cramps History of pain when walking History of stress test Left shoulder pain Bilateral primary osteoarthritis of knee Left knee pain Right knee pain Rupture of left long head biceps tendon Home Medications ?Medication ?Instructions ?Recorded ?Last Taken ?Type omeprazole 20 mg capsule,delayed 20 mg PO DAILY 10/28/22 Unknown History release ascorbic acid (vitamin C) 1,000 mg 1,000 mg PO DAILY 05/12/23 Unknown History tablet,extended release (C Complex) Allergy/AdvReac Type Severity Reaction Status Date / Time Penicillins AdvReac Severe Hives Verified 03/20/24 19:47 Surgical History History of shoulder surgery Hx of vasectomy Social History Smoking Status: Current every day smoker tobacco type: cigarettes alcohol intake: current alcohol intake frequency: a few times a week Vital Signs Vital Signs Vital Signs: 03/20/24 17:37 03/20/24 18:39 03/20/24 19:00 Temperature 98.4 F 98.4 F 98.4 F Temperature Source Oral Oral Oral Pulse Rate 77 73 81 Respiratory Rate 16 18 16 Blood Pressure 144/89 H 126/89 H 126/78 H Blood Pressure Mean 107 101 94 Pulse Ox 99 97 96 Oxygen Delivery Method Room Air Room Air Room Air 03/20/24 19:25 03/20/24 20:00 Temperature 98.6 F 98.5 F Temperature Source Oral Pulse Rate 82 80 Respiratory Rate 16 17 Blood Pressure 126/78 H 116/89 H Blood Pressure Mean 94 98 Pulse Ox 99 98 Oxygen Delivery Method Room Air Weight Weight: 200 lb 1.6 oz Body Mass Index (BMI) 27.1 Physical Exam Const alert and oriented x3 Constitutional Narrative: Patient frequently jokes throughout the encounter General Appearance: cooperative Resp normal respiratory effort GI GI Narrative: Hirsute, no scars, small umbilical hernia with lint in the umbilicus. Nondistended, soft, focally tender to palpation at McBurney's point. Negative Rovsing sign, positive psoas sign, negative obturator sign. Results Lab / Micro Data 03/20/24 17:56 03/20/24 17:56 Labs: Laboratory Results - last 24 hr 03/20/24 17:56: WBC 14.4 H, RBC 5.15, Hgb 16.0, Hct 47.1, MCV 91.5, MCH 31.1, MCHC 34.0, RDW Std Deviation 42.7, RDW Coeff of Lizette 12.7, Plt Count 272, MPV 9.1, Immature Gran % (Auto) 0.600, Neut % (Auto) 84.9 H, Lymph % (Auto) 7.5 L, [place] % (Auto) 5.4, Eos % (Auto) 1.3, Baso % (Auto) 0.3, Absolute Neuts (auto) 12.2 H, Absolute Lymphs (auto) 1.07, Nucleated RBC % 0, Sodium 137, Potassium 3.4 L, Chloride 105, Carbon Dioxide 28.0, Anion Gap 4 L, BUN 21 H, Creatinine 1.27, Estim Creat Clear Calc 72.13, Est GFR (MDRD) Af Amer 76, Est GFR (MDRD) Non-Af 62, BUN/Creatinine Ratio 16.5, Glucose 117 H, Calcium 8.7 03/20/24 18:02: Urine Color Yellow, Urine Clarity Clear, Urine pH 6.0, Ur Specific [place] 1.015, Urine Protein Negative, Urine Glucose (UA) Normal, Urine Ketones Negative, Urine Occult Blood 10 H, Urine Nitrite Negative, Urine Bilirubin Negative, Urine Urobilinogen Normal, Ur Leukocyte Esterase Negative, Urine RBC 0-5 SEEN, Urine WBC 0-5 SEEN, Ur Squamous Epith Cells 0 SEEN, Urine Bacteria RARE, Urine Mucus RARE Imaging Radiology Impression Abdomen/Pelvis CT 03/20/24 18:18 IMPRESSION: (NOT LISTED IN ORDER OF SIGNIFICANCE) Acute appendicitis. Other findings as above. Electronically Signed: Angelo Workman MD at 19:21 EST , ADDENDUM: 03/20/24 1931 IMPRESSION: (NOT LISTED IN ORDER OF SIGNIFICANCE) Acute appendicitis. Other findings as above. N.B. : The above Results were Read Back by Angelo Workman MD to Moshe López DO, and understanding confirmed on 03/20/2024 19:24:14 (ET). Electronically Signed: Angelo Workman MD at 19:21 EST , Assessment & Plan Assessment/Plan (1) Acute appendicitis: PLAN: Patient is a 53-year-old, otherwise healthy, male who presents with less than 24 hours of acute onset right lower quadrant abdominal pain and associated symptoms of nausea,, bloating, low-grade fevers, and some anorexia. Workup is consistent with diagnosis of acute appendicitis. Further, CT imaging does not show any evidence of perforation so he is felt to exhibit signs and symptoms of acute uncomplicated appendicitis. As such, I discussed the management of acute appendicitis with family?including use of antibiotic only protocols versus antibiotics and surgical appendectomy. I specifically discussed the findings of the recently published coda trial. Ultimately I recommended that we proceed for emergent appendectomy. Family was receptive and I went on to describe the details of the procedure as well as postprocedural expectations. Operating team and anesthesia has been notified. Antibiotics have been dosed already by emergency medicine. Will plan to admit patient to hospital for observational stay postoperatively given the later hour of the case and patient's history of sleep apnea. Stanislav Moise MD General Surgery Endocrine Surgery Pager: [facility] [address] [place] [address], [address] [place] [address] Office: [phone] Charges/Coding Visit Charges Inpatient E&M: 11784 Init Hosp L2
--- NOTE | 2024-03-20 21:46 | PRE.ANES_ITS ---
ASA Classification* ASA Classification ASA Classification: 2 and E Assessment & Plan Anesthesia* Anesthesia Assessment Anesthesia Assessment: Discussed sedation and/or anesthesia options, risks, benefits, and alternatives with patient/parents/legal guardian/POA. Questions invited. The patient/parents/legal guardian/POA seems to understand and agrees to proceed with anesthesia plan. Reviewed the physical assessment, medical history, allergy history and patient home medications list prior to surgery/procedure/anesthetic and documented any changes. Performed airway and anesthesia risk assessments. Anesthesia Type Anesthesia Type: General Anesthesia Focused Assessment* Temperature: 98.5 F Pulse Rate: 86 Blood Pressure: 127/82 Respiratory Rate: 18 Pulse Ox: 95 Airway Assessment Mouth opens: >3 cm Mallampati Score: II Focused Labs Anesthesia Preop lab: CBC WBC 14.4 K/mm3 (4.4-11.0) H 03/20/24 17:56 RBC 5.15 M/mm3 (4.6-6.2) 03/20/24 17:56 Hgb 16.0 g/dL (13.0-16.5) 03/20/24 17:56 Hct 47.1 % (40-54) 03/20/24 17:56 Plt Count 272 K/mm3 (150-450) 03/20/24 17:56 CHEMISTRY Potassium 3.4 mmol/L (3.5-5.1) L 03/20/24 17:56 Sodium 137 mmol/L (136-145) 03/20/24 17:56 BUN 21 mg/dL (7-18) H 03/20/24 17:56 Creatinine 1.27 mg/dL (0.70-1.30) 03/20/24 17:56 Glucose 117 mg/dL (74-106) H 03/20/24 17:56 COAG Pre-Assessment Diagnosis/Proposed Procedure Planned Operative Procedure(s): Laproscopic appendectomy Anesthesia History 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 When Was Last Pacemaker Check QUESTION #4 FULL TEXT: You/Your Family Experience fever (hyperthermia) with Anesthesia Last Oral Intake Last Oral intake: Last Oral Intake NPO since 17:00 03/20/24 20:19 Meds taken in AM with sips of water? 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 Has anyone observed you stop No 03/20/24 20:19 breathing during sleep? STOP Results Positive 03/20/24 20:19 QUESTION #5 FULL TEXT : Do you snore loudly (louder than talking or can be heard through closed doors)? 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 Specify any problems Hx of Preganancy in last 3 Months Nurse Filling Out Transfusion & Questions: Date: Time: Patient unable to answer at this time (ie. 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: /Reproductive Hx- assistant women's basketball coach Hx Now No 03/20/24 20:19 Gestational Age (in weeks): EDC: Hx Hx Para Hx Section SAB No 05/12/23 09:08 [facility]LY [facility] Medical History Impingement of left shoulder Alcohol use Redness of skin Back pain Injury of head and neck Gastric reflux Non-smoker Shortness of breath on exertion Leg cramps History of pain when walking History of stress test Left shoulder pain Bilateral primary osteoarthritis of knee Left knee pain Right knee pain Rupture of left long head biceps tendon Home Medications ?Medication ?Instructions ?Recorded ?Last Taken ?Type omeprazole 20 mg capsule,delayed 20 mg PO DAILY 10/28/22 Unknown History release ascorbic acid (vitamin C) 1,000 mg 1,000 mg PO DAILY 05/12/23 Unknown History tablet,extended release (C Complex) Allergy/AdvReac Type Severity Reaction Status Date / Time Penicillins AdvReac Severe Hives Verified 03/20/24 19:47 Surgical History History of shoulder surgery Hx of vasectomy Social History Smoking Status: Current every day smoker tobacco type: cigarettes alcohol intake: current alcohol intake frequency: a few times a week Review of Systems (Anesthesia) ROS Narrative System reviewed and no additional complaints, except as documented.
--- NOTE | 2024-03-20 21:50 | APP_PTH ---
PATIENT: REGI PHIPPS LOC: MS3 U#:[id number] AGE/SX: 53/M ROOM: OR314 RE03/20/[address]: Dr. Stanislav Moise MD : 1970 BED: 1 DIS: 03/21/2024 SPEC #: [id number] RECD: 03/21/24 09:37 STATUS: TYRESE REJonnie #: [id number] MELODY: 03/20/24 21:[address]: Stanislav Moise DEPT: SURGICAL PATHOLOGY RECD BY: Fani Thompson ENTERED: 03/21/24 11:39 SP TYPE: APPENDIX OTHR DR: Dr. Jeremiah Valdez MD Tissues: Appendix, NOS Procedures: Surgery Specimen Level III HEADER OPERATION: Laparoscopic appendectomy PRE-OP DIAGNOSIS: Acute appendicitis TISSUE SUBMITTED: Appendix MICROSCOPIC DIAGNOSIS Appendix, appendectomy: Acute appendicitis and periappendicitis. 03/22/2024 MICROSCOPIC DESCRIPTION Slides are reviewed. GROSS DESCRIPTION Received in fixative is one container labeled with the patient's name and designated appendix. The specimen consists of an appendix measuring 6.0 cm in length and up to 1.5 cm in diameter. The attached periappendiceal adipose tissue measures up to 4.0 cm in width. The serosa is congested and covered with ashton purulent exudate. No obvious perforation is identified. The lumen is filled with hemorrhagic fluid. No fecalith is identified. Hotel [employer] D[employer] Cashier sections are submitted in two cassettes. / SJ:mr 03/21/2024 TC:2 CPT: 77011
[2024-03-20] MEDS: Bupiv/Epi 0.25% 30 ML Vial (22:08)
--- NOTE | 2024-03-20 22:12 | OP.PCM_ITS ---
Procedures Digestive 40xxx-49xxx: [id number] Laparoscopy appendectomy Operative Report (Standard) Operative Information Date of Procedure: 03/20/24 Pre-Operative Diagnosis: Acute appendicitis Post-Operative Diagnosis: Acute uncomplicated appendicitis Surgery/Procedure Performed: Laparoscopic appendectomy glazing department supervisor: Yes Lepidopterist: Rachel Roberson Tasks completed by first aid officer: Opening & closing and Other (Operation of laparoscope) Type of Anesthesia: General/Supplemental RN Documented Start/Stop Times: Operation Date: 03/20/24 21:50 Case Time Anesthesia Start 03/20/24 21:08 Into Room 03/20/24 21:08 Procedure Start 03/20/24 21:30 Procedure Start Time: 21:30 Procedure Stop Time: 22:14 Select all DRAINS/GRAFTS/IMPLANTS that apply: None Estimated Blood Loss: 15 Specimen collected: Yes Description of specimen(s) removed: Appendix Description of surgery: After appropriate identification in the preoperative holding area, the patient was brought to the operating room and placed supine on the operating room table. Antibiotics had been preoperatively administered by emergency medicine. Patient was then induced with general endotracheal anesthetic. The abdomen was prepped and draped in usual sterile fashion. Formal timeout was conducted to confirm both the patient and the procedure. A supraumbilical incision was made and carried down to the level of the fascia which was sharply opened. After opening the peritoneum in like fashion a finger sweep was made to confirm position, and a balloon trocar was placed and pneumoperitoneum was established to 15 mmHg. Patient was positioned in Trendelenburg with the left side down. Two additional 5 mm trocars were placed in the left lower quadrant and suprapubic positions. The peritoneum was inspected and there were no signs of inadvertent injury from this Ernst entry. The appendix was visualized with mild to moderate inflammatory change. Using blunt laparoscopic dissection, a window was made in the mesoappendix adjacent to the appendiceal base. The mesoappendix was divided with application of a laparoscopic harmonic. Then the base of the appendix was sealed and amputated with the use of an Endo PHILLIP stapler. The appendix was placed in an Endo Catch bag. The staple line was inspected for hemostasis and slight oozing was noted. Therefore a Ray-Lj sponge was introduced to the peritoneal cavity and manual pressure was applied to the staple line for approximately 3 minutes. After this pressure was removed hemostasis was confirmed and the appendix was removed from the umbilical port site. This extraction did require us to upsize patient's supraumbilical port site by approximately 2 cm given the large size of the specimen. Pneumoperitoneum was then evacuated and the supraumbilical port site fascia was closed with #1 Vicryl in a [id number] fashion. The port sites were infiltrated with 30 mL local anesthetic. The skin of each port site was closed with 4-0 Monocryl in a subcuticular fashion. Steri-Strips and OpSite dressings were applied. Patient tolerated procedure well without any apparent complications. They were awoken from general anesthetic without issue and transferred to post anesthesia care unit for ongoing recovery. Surgical Findings: ? Acutely inflamed and severely dilated appendix without evidence of perforation but there was presence of fibrinous exudate along the corpus of the appendix ? A grossly normal-appearing normal gallbladder was noted along the liver margin Complications Complications: No
--- NOTE | 2024-03-20 22:24 | PCM.POST.ANE ---
Anesthesia: Postop Eval I Current Vital Signs Temperature: 98 F Pulse Rate: 93 Blood Pressure: 122/72 Respiratory Rate: 19 Pulse Ox: 97 Assessment Airway patent: Yes Spontaneous unlabored respirations: Yes nausea: No Vomiting: No Anesthesia Complication: No Fluid Hydration Crystalloid volume administer (ml): 500 Total IV fluid infused: 500 Progress Note Anesthesia document: Postop Eval 1 completed: Yes
--- NOTE | 2024-03-20 22:31 | POSTOPAN2_ITS ---
Anesthesia Postop Eval I Sum Postop Eval Completion status Anesthesia document: Postop Eval 1 completed: Yes Anesthesia Postop Eval I Summary Anesthesia Postop Eval I Summary: Anesthesia Postop Eval I: Assessment Summary Airway patent Yes 03/20/24 22:24 [email or web address] Spontaneous unlabored Yes 03/20/24 22:24 [email or web address] respirations Mental status nausea No 03/20/24 22:24 [email or web address] Vomiting No 03/20/24 22:24 [email or web address] Anesthesia Postop Eval I: Fluid Summary Crystalloid volume administer 500 03/20/24 22:24 [email or web address] (ml) Colloids volume administered ( ml) Blood Product volume administered (ml) Total IV fluid infused 500 03/20/24 22:24 [email or web address] Anesthesia Postop Eval I: Summary Notes Anesthesia Complication No 03/20/24 22:24 MANAGER [email or web address] Anesthesia Complication Comment: Post-operative progress note Anesthesia: Postop Eval II Evaluation Mental status: Awake Pain Level: 0 nausea: No Vomiting: No
--- NOTE | 2024-03-20 22:31 | PCM.POSTANE2 ---
Anesthesia Postop Eval I Sum Postop Eval Completion status Anesthesia document: Postop Eval 1 completed: Yes Anesthesia Postop Eval I Summary Anesthesia Postop Eval I Summary: Anesthesia Postop Eval I: Assessment Summary Airway patent Yes 03/20/24 22:24 [email or web address] Spontaneous unlabored Yes 03/20/24 22:24 [email or web address] respirations Mental status nausea No 03/20/24 22:24 [email or web address] Vomiting No 03/20/24 22:24 [email or web address] Anesthesia Postop Eval I: Fluid Summary Crystalloid volume administer 500 03/20/24 22:24 [email or web address] (ml) Colloids volume administered ( ml) Blood Product volume administered (ml) Total IV fluid infused 500 03/20/24 22:24 [email or web address] [email or web address] Anesthesia Postop Eval I: Summary Notes Anesthesia Complication No 03/20/24 22:24 [email or web address] Anesthesia Complication Comment: Post-operative progress note Anesthesia: Postop Eval II Evaluation Mental status: Awake Pain Level: 0 nausea: No Vomiting: No
[2024-03-20] MEDS: Ibuprofen 400 MG Tablet PO (23:55)
[2024-03-21 01:05] VITALS: BP 114/78; PULSE 88; RESP 16; TEMP 36.8; O2SAT 95
[2024-03-21 03:17] VITALS: BP 105/73; PULSE 82; RESP 14; TEMP 36.9; O2SAT 95
[2024-03-21 06:12] VITALS: BP 110/67; PULSE 79; RESP 14; TEMP 36.6; O2SAT 95
[2024-03-21] MEDS: Ibuprofen 400 MG Tablet PO (06:14)
[2024-03-21 06:30] LABS: Absolute Lymphocyte Count 1.16 X10^3/uL (0.83-4.51); Absolute Neutrophil Count 7.5 X10^3/uL (2.0-7.7); Basophil# 0.02 X10^3/uL; Basophil% 0.2 % (0-1); Eosinophil# 0.07 X10^3/uL; Eosinophils% 0.7 % (0-5); Hematocrit 42.8 % (40-54); Hemoglobin 14.5 g/dL (13.0-16.5); Lymphocyte # 1.16 X10^3/ul (0.83-4.51); Lymphocyte % 12.2 % (19-41); Mean Corp Hgb Conc 33.9 g/dL (32-36); Mean Corpuscular Hgb 30.6 pg (27.0-32.0); Mean Corpuscular Volume 90.3 fL (80-94); Mean Platelet Vol. 9.3 fl (6.2-12.0); Monocyte# 0.69 X10^3/uL; Monocyte% 7.3 % (0-10); NRBC Flagged by Analyzer 0 % (0-5); Neutrophil # 7.49 X10^3/uL (2.7-7.7); Neutrophil % 79.1 % (47-70); Platelet Count 269 K/mm3 (150-450); RBC Distribution Width CV 12.6 % (11.6-14.6); RBC Distribution Width SD 41.5 fl (35.1-43.9); Red Blood Count 4.74 M/mm3 (4.6-6.2); White Blood Count 9.5 K/mm3 (4.4-11.0)
--- NOTE | 2024-03-21 08:06 | DCINST_ITS ---
Discharge Instructions Diet Discharge Diet: No restrictions DC O2, CPAP, BIPAP needs Home O2 Discharge instructions: No Dressing / Incision Discharge Activity: May Not Drive (No driving while using narcotic pain medication) and May Shower (Postoperative day 1) May shower in (days): 1 Ice area for (Minutes): 20 Lifting Restrictions: No lifting greater than 15 pounds for 2 weeks after surgery Dressing / Incision Call your doctor if your incision/area has: Continuous Slow Oozing, Increased Pain/ Swelling, Increased Redness, Foul Smelling Discharge and Swelling at the incision site Call your doctor if you observe: Fever of 101 or Higher Remove Dressing in: 1 day (Please leave Steri-Strips intact until they fall off spontaneously or are taken off at your follow-up visit) Cleanse incision/area with: Soap & Water Follow Up Care Please Follow Up With: Stanislav Moise MD When: 10-14 days postop Test Results: Test results from this visit will be discussed in further detail at your follow- up appointment, if applicable. Discharge Plan Admission Admit Date/Time: 03/20/24 21:29 Primary Reason for Your Visit: s/p appendectomy Attending Provider: Stanislav Moise Primary Care Provider: Jeremiah Valdez Discharge Orders/Prescriptions Prescriptions: New oxycodone 5 mg Tablet 5 mg PO Q6H PRN PRN (Reason: Pain Score 6-10) 3 Days Qty: 10 0RF Continued omeprazole 20 mg capsule,delayed release(DR/EC) 20 mg PO DAILY C Complex 1,000 mg tablet extended release 1,000 mg PO DAILY Referrals / Follow Up: Jeremiah Valdez MD [Primary Care Provider] - Disposition Disposition (needs filled in before D/C Order can be placed): Home, Self Care
--- NOTE | 2024-03-21 08:10 | PCM.DC.SUM ---
Providers Date of Admission: 03/20/24 Primary Care Physician: Dr. Jeremiah Valdez MD Reason For Visit: abd pain Diagnosis Discharge Diagnosis (1) Acute appendicitis: Status: Acute Code(s): K35.80 - Unspecified acute appendicitis Plan: Patient is a 53-year-old, otherwise healthy, male who presents with less than 24 hours of acute onset right lower quadrant abdominal pain and associated symptoms of nausea,, bloating, low-grade fevers, and some anorexia. Workup is consistent with diagnosis of acute appendicitis. Further, CT imaging does not show any evidence of perforation so he is felt to exhibit signs and symptoms of acute uncomplicated appendicitis. As such, I discussed the management of acute appendicitis with family?including use of antibiotic only protocols versus antibiotics and surgical appendectomy. I specifically discussed the findings of the recently published coda trial. Ultimately I recommended that we proceed for emergent appendectomy. Family was receptive and I went on to describe the details of the procedure as well as postprocedural expectations. Operating team and anesthesia has been notified. Antibiotics have been dosed already by emergency medicine. Will plan to admit patient to hospital for observational stay postoperatively given the later hour of the case and patient's history of sleep apnea. Stanislav Moise MD General Surgery Endocrine Surgery Pager: [facility] [address] [place] [address], [address] [place] [address] Office: [phone] Medications at Discharge Home Medications omeprazole 20 mg capsule,delayed release 20 mg PO DAILY 10/28/22 ascorbic acid (vitamin C) 1,000 mg tablet,extended release (C Complex) 1,000 mg PO DAILY 05/12/23 oxycodone 5 mg tablet 5 mg PO Q6H PRN PRN Pain Score 6-10 3 days #10 tabs 03/21/24 Hospital Course Operations appendectomy Procedures None Summary of Care Provided Hospital Course: Patient is a 53-year-old male who was evaluated in the emergency department on 03/20/2024 after presenting with complaints of acute onset abdominal pain localized to the right lower quadrant with associated nausea and low-grade fevers. Ultimately diagnosed with acute appendicitis and taken for emergent laparoscopic appendectomy the same evening. Procedure confirmed acute uncomplicated appendicitis and proceeded in uncomplicated fashion. He was evaluated morning of postoperative day 1 and doing well clinically. He denied any significant pain and confirmed tolerance of a diet. Further, his postoperative labs were reassuring. Thus, post procedure wound care and activity instructions were reviewed as well as an expectation for outpatient follow-up and he was granted discharge to home. Physical Exam Const alert, oriented x3 and no apparent distress Resp normal respiratory effort GI GI Narrative: Mild bloody drainage to operative dressings, nondistended, soft, appropriately tender to palpation about port sites Weight / BMI Weight Weight: 199 lb 15.348 oz Body Mass Index (BMI) 27.1 ABG / Lab / Microbiology Data 03/21/24 05:46 03/20/24 17:56 Laboratory: Laboratory Results - last 24 hr 03/20/24 17:56: WBC 14.4 H, RBC 5.15, Hgb 16.0, Hct 47.1, MCV 91.5, MCH 31.1, MCHC 34.0, RDW Std Deviation 42.7, RDW Coeff of Lizette 12.7, Plt Count 272, MPV 9.1, Immature Gran % (Auto) 0.600, Neut % (Auto) 84.9 H, Lymph % (Auto) 7.5 L, Beltrami % (Auto) 5.4, Eos % (Auto) 1.3, Baso % (Auto) 0.3, Absolute Neuts (auto) 12.2 H, Absolute Lymphs (auto) 1.07, Nucleated RBC % 0, Sodium 137, Potassium 3.4 L, Chloride 105, Carbon Dioxide 28.0, Anion Gap 4 L, BUN 21 H, Creatinine 1.27, Estim Creat Clear Calc 72.13, Est GFR (MDRD) Af Amer 76, Est GFR (MDRD) Non-Af 62, BUN/Creatinine Ratio 16.5, Glucose 117 H, Calcium 8.7 03/20/24 18:02: Urine Color Yellow, Urine Clarity Clear, Urine pH 6.0, Ur Specific Nordman 1.015, Urine Protein Negative, Urine Glucose (UA) Normal, Urine Ketones Negative, Urine Occult Blood 10 H, Urine Nitrite Negative, Urine Bilirubin Negative, Urine Urobilinogen Normal, Ur Leukocyte Esterase Negative, Urine RBC 0-5 SEEN, Urine WBC 0-5 SEEN, Ur Squamous Epith Cells 0 SEEN, Urine Bacteria RARE, Urine Mucus RARE 03/21/24 05:46: WBC 9.5, RBC 4.74, Hgb 14.5, Hct 42.8, MCV 90.3, MCH 30.6, MCHC 33.9, RDW Std Deviation 41.5, RDW Coeff of Lizette 12.6, Plt Count 269, MPV 9.3, Immature Gran % (Auto) 0.500, Neut % (Auto) 79.1 H, Lymph % (Auto) 12.2 L, Beltrami % (Auto) 7.3, Eos % (Auto) 0.7, Baso % (Auto) 0.2, Absolute Neuts (auto) 7.5, Absolute Lymphs (auto) 1.16, Nucleated RBC % 0 Radiography Diagnostic Testing: Radiology Impression Abdomen/Pelvis CT 03/20/24 18:18 IMPRESSION: (NOT LISTED IN ORDER OF SIGNIFICANCE) Acute appendicitis. Other findings as above. Electronically Signed: Angelo Workman MD at 19:21 EST , ADDENDUM: 03/20/24 193 IMPRESSION: (NOT LISTED IN ORDER OF SIGNIFICANCE) Acute appendicitis. Other findings as above. N.B. : The above Results were Read Back by Angelo Workman MD to Moshe López DO, and understanding confirmed on 03/20/2024 19:24:14 (ET). Electronically Signed: Angelo Workman MD at 19:21 EST , D/C Instructions Discharge Diet: No restrictions May shower in (days): 1 Ice area for (Minutes): 20 Call your doctor if your incision/area has: Continuous Slow Oozing, Increased Pain/ Swelling, Increased Redness, Foul Smelling Discharge and Swelling at the incision site Call your doctor if you observe: Fever of 101 or Higher Cleanse incision/area with: Soap & Water DC O2, CPAP, BIPAP Needs Home O2 Discharge instructions: No Please Follow Up With: Stanislav Moise MD When: 10-14 days postop Meaningful Use Info Meaningful Use Meaningful Use Diagnoses (Choose all that apply): None applicable Ischemic Stroke Statin Dosing Therapy Reference: STATIN DOSE THERAPY REFERENCE: * Patients > 75 years receive moderate or high dose statin therapy. * Patients 75 years or YOUNGER should receive HIGH intensity statin dose unless contraindicated. You will be required to document reason for non-treatment if statin daily dose does not meet guidelines. HIGH DOSE STATIN THERAPY DAILY Atorvastatin > than or = to 40 mg Rosuvastatin > than or = to 20 mg Amlodipine + Atorvastatin > than or = to 2.5/40 mg Ezetimibe + Simvastatin 10/80 mg Simvastatin 80mg Discharge Plan Admission Admit Date/Time: 03/20/24 21:29 Primary Reason for Your Visit: s/p appendectomy Attending Provider: Stanislav Moise Primary Care Provider: Jeremiah Valdez Discharge Orders/Prescriptions Prescriptions: New oxycodone 5 mg Tablet 5 mg PO Q6H PRN PRN (Reason: Pain Score 6-10) 3 Days Qty: 10 0RF Continued omeprazole 20 mg capsule,delayed release(DR/EC) 20 mg PO DAILY C Complex 1,000 mg tablet extended release 1,000 mg PO DAILY Referrals / Follow Up: Jeremiah Valdez MD [Primary Care Provider] - Disposition Disposition (needs filled in before D/C Order can be placed): Home, Self Care Charges/Coding Visit Charges Inpatient E&M: 56662 Disch Hosp
--- NOTE | 2024-03-21 09:03 | CASEMGMT ---
OLIVIA MALCOLM Assessment: Face to Face with pt for initial transition planning/care coordination assessment. OLIVIA MALCOLM introduced self and role at [facility], pt voices understanding and consents to assessment. Pt is A&O x4 and answers all questions appropriately at this time. Pt lying in bed in no distress. Care providers, pharmacy, and demographics verified/updated. Admitting Dx: abd pain Strata Score: 1 PCP:Courtney Specialists:Denies Preferred Pharmacy:[facility] Insurance: [facility] For [employer] Prescription Benefit: yes LNOK: Rose Marie Lai, Living Arrangements: Pt lives with in a single story home with no steps to enter. Pt reports he is I in ADLs and denies concerns at home. Transportation: Pt drives self and denies concerns with transportation. DME:Denies HHC/SNF: Denies hx of Pt states no concerns with going home at time of dc. Pt has a dc order in. Pt states no further concerns/needs. CM to follow. Advised pt to ask CM if any further question/concerns/needs arise, voices understanding. Pt Goal: Home Plan: Home Jing BAKER CM
[2024-03-21 09:45] VITALS: BP 124/70; PULSE 83; RESP 16; TEMP 36.8; O2SAT 96
== END 2024-03-21 09:53 | disposition home or self-care (01) ==
LOC: ED 17:57 → SDC 19:55 → MS3 03-21 08:10
PROVIDERS: Admitting Provider Surgery; Emergency Provider Emergency Medicine; PCP Family Medicine; Visit Provider Surgery
PROC: 0DTJ4ZZ Resection of Appendix, Percutaneous Endoscopic Approach (ICD-10-PCS; CPT 44970; principal; 2024-03-20 21:30)
DX: K35.80 Unspecified acute appendicitis (principal); K21.9 Gastro-esophageal reflux disease without esophagitis; Z79.899 Other long term (current) drug therapy; F17.210 Nicotine dependence, cigarettes, uncomplicated
CPT/HCPCS: 44970; 00840; 36415; 74177; 80048; 81001; 85025; 88304; 96361; 96374; 99221; 99284; Q9967; A4216; G0378; J2405

== ENCOUNTER 2024-07-29 05:28 | Day surgery (SDC) | payer OTHER, SELFPAY ==
--- NOTE | 2024-07-27 11:59 | PAT.ANE_ITS ---
Pre-Assessment Diagnosis/Proposed Procedure Planned Operative Procedure(s): COLONOSCOPY Anesthesia History Anesthesia History - interactive media specialist: Anesthesia History - interactive media specialist Hx Hospitalization No 07/27/24 11:45 Any Problems With Anesthesia No 07/27/24 11:45 Cholinesterase deficiency No 07/27/24 11:45 You/Your Family Experience No 07/27/24 11:45 fever (hyperthermia) with Relationship Recent Exposure to Contagious No 03/20/24 20:19 Disease Does patient have nerve No 07/27/24 11:45 stimulator Patient instructed to have device shut off --Does patient have Pacemaker or ICD? When Was Last Pacemaker Check QUESTION #4 FULL TEXT: You/Your Family Experience fever (hyperthermia) with Anesthesia Last Oral Intake Last Oral intake: Last Oral Intake NPO since Meds taken in AM with sips of water? Meds patient instructed to take am of surgery PONV PONV - interactive media specialist: PONV - interactive media specialist Female No 07/27/24 11:45 HX of Motion Sickness No 07/27/24 11:45 HX of N/V After Surgery No 07/27/24 11:45 Non-Smoker Yes 07/27/24 11:45 Duration of Surgery greater No 07/27/24 11:45 than 60 minutes Number of Risk Factors 1 07/27/24 11:45 PONV Score Low Risk 07/27/24 11:45 Height & Weight Height & Weight: Anesthesia: Height & Weight Height 6 ft 04/01/24 11:38 Respiratory Assessment Respiratory Assessment - interactive media specialist: Respiratory Tract Infection Hx - interactive media specialist Hx Respiratory Tract Infection No 07/27/24 11:45 STOP Sleep Apnea STOP Sleep Apnea - interactive media specialist: STOP Sleep Apnea - interactive media specialist Hx Hypertension No 07/27/24 11:45 Hx Sleep Apnea Yes: NON-COMPLIANT 07/27/24 11:45 CPAP No 07/27/24 11:45 BIPAP No 07/27/24 11:45 Do you snore loudly (louder than talking or can be heard Do you often feel tired/ fatigued/ sleepy during daytime? Has anyone observed you stop breathing during sleep? STOP Results Positive 07/27/24 11:45 QUESTION #5 FULL TEXT : Do you snore loudly (louder than talking or can be heard through closed doors)? 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 Specify any problems Hx of Preganancy in last 3 N/A 07/27/24 11:45 Months Nurse Filling Out Transfusion VCHRISTIN 07/27/24 11:45 & Questions: Date: 07/27/24 07/27/24 11:45 Time: 11:47 07/27/24 11:45 Patient unable to answer at this time (ie. confused, unrespo /Reproduction History /Reproductive History - interactive media specialist: /Reproductive Hx- interactive media specialist Hx Now Gestational Age (in weeks): EDC: Hx Hx Para Hx Section SAB No 07/27/24 11:45 PFSH Medical History Impingement of left shoulder Alcohol use Redness of skin Back pain Injury of head and neck Gastric reflux Non-smoker Shortness of breath on exertion Leg cramps History of pain when walking History of stress test Left shoulder pain Bilateral primary osteoarthritis of knee Left knee pain Right knee pain Rupture of left long head biceps tendon Home Medications ?Medication ?Instructions ?Recorded ?Last Taken ?Type omeprazole 20 mg capsule,delayed 20 mg PO DAILY Unknown History release ascorbic acid (vitamin C) 1,000 mg 1,000 mg PO DAILY 0 05/12/23 Unknown History tablet,extended release (C Complex) Allergy/AdvReac Type Severity Reaction Status Date / Time Penicillins AdvReac Severe Hives Verified 07/27/24 11:43 Surgical History S/P appendectomy History of shoulder surgery Hx of vasectomy Social History Smoking Status: Never smoker alcohol intake: current alcohol intake frequency: a few times a week Audit: Pertinent Findings Pertinent Findings EKG Perinent findings: 05/2018: NSR, incomplete RBBB Recommendation Anesthesia Recommendation Anesthesia recommendation: OPTIMIZED for anesthesia
[2024-07-29 05:57] VITALS: BP 105/76; PULSE 64; RESP 18; TEMP 36.1; O2SAT 97; BMI 27.6
[2024-07-29] MEDS: Lactated Ringers 1,000 ML 15 ML IV (06:08)
--- NOTE | 2024-07-29 06:26 | PRE.ANES_ITS ---
ASA Classification* ASA Classification ASA Classification: 2 Assessment & Plan Anesthesia* Anesthesia Assessment Anesthesia Assessment: Discussed sedation and/or anesthesia options, risks, benefits, and alternatives with patient/parents/legal guardian/POA. Questions invited. The patient/parents/legal guardian/POA seems to understand and agrees to proceed with anesthesia plan. Reviewed the physical assessment, medical history, allergy history and patient home medications list prior to surgery/procedure/anesthetic and documented any changes. Performed airway and anesthesia risk assessments. Anesthesia Type Anesthesia Type: MAC History Source History Obtained from:: Patient and Chart Anesthesia Focused Assessment* Temperature: 96.9 F Pulse Rate: 64 Blood Pressure: 105/76 Respiratory Rate: 18 Pulse Ox: 97 Oxygen Delivery Method: Room Air Airway Assessment Mouth opens: 1 cm Mallampati Score: I Teeth Condition: Intact and Missing (right back molar) Neck Range of motion (ROM): Full ROM Focused Labs Anesthesia Preop lab: CBC WBC 9.5 K/mm3 (4.4-11.0) 03/21/24 05:46 03/21/24 RBC 4.74 M/mm3 (4.6-6.2) 03/21/24 05:46 03/21/24 Hgb 14.5 g/dL (13.0-16.5) 03/21/24 05:46 03/21/24 Hct 42.8 % (40-54) 03/21/24 05:46 03/21/24 Plt Count 269 K/mm3 (150-450) 03/21/24 05:46 03/21/24 CHEMISTRY Potassium 3.4 mmol/L (3.5-5.1) L 03/20/24 17:56 03/20/24 Sodium 137 mmol/L (136-145) 03/20/24 17:56 03/20/24 BUN 21 mg/dL (7-18) H 03/20/24 17:56 03/20/24 Creatinine 1.27 mg/dL (0.70-1.30) 03/20/24 17:56 03/20/24 Glucose 117 mg/dL (74-106) H 03/20/24 17:56 03/20/24 COAG Pre-Assessment Diagnosis/Proposed Procedure Planned Operative Procedure(s): COLONOSCOPY Anesthesia History 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 When Was Last Pacemaker Check QUESTION #4 FULL TEXT: You/Your Family Experience fever (hyperthermia) with Anesthesia Last Oral Intake Last Oral intake: Last Oral Intake NPO since 02:30 07/29/24 05:57 Meds taken in AM with sips of No 07/29/24 05:57 water? Meds patient instructed to take am of surgery PONV PONV - concrete pavement installer: PONV - concrete pavement installer Female No 07/27/24 11:45 HX of Motion Sickness No 07/27/24 11:45 HX of N/V After Surgery No 07/27/24 11:45 Non-Smoker Yes 07/27/24 11:45 Duration of Surgery greater No 07/27/24 11:45 than 60 minutes Number of Risk Factors 1 07/27/24 11:45 PONV Score Low Risk 07/27/24 11:45 Height & Weight Height & Weight: Anesthesia: Height & Weight Height 6 ft 07/29/24 05:57 Weight: 92.442 kg 07/29/24 05:57 Body Mass Index (BMI) 27.6 07/29/24 05:57 Respiratory Assessment Respiratory Assessment - concrete pavement installer: Respiratory Tract Infection Hx - concrete pavement installer Hx Respiratory Tract Infection No 07/27/24 11:45 STOP Sleep Apnea STOP Sleep Apnea - concrete pavement installer: STOP Sleep Apnea - concrete pavement installer Hx Hypertension No 07/27/24 11:45 Hx Sleep Apnea Yes: NON-COMPLIANT 07/27/24 11:45 CPAP No 07/27/24 11:45 BIPAP No 07/27/24 11:45 Do you snore loudly (louder than talking or can be heard Do you often feel tired/ fatigued/ sleepy during daytime? Has anyone observed you stop breathing during sleep? STOP Results Positive 07/27/24 11:45 QUESTION #5 FULL TEXT : Do you snore loudly (louder than talking or can be heard through closed doors)? Tobacco Use History Tobacco Use History - concrete pavement installer: Tobacco Use History - concrete pavement installer Tobacco Use Smoking Status Never smoker 07/27/24 11:45 Hx Tobacco Use No 07/27/24 11:45 Years Smoking Packs Smoked per Day Smoking Cessation Date was within the last 15 years Hx Smoking Cessation Date Hx Smoking Cessation Counseling Hematologic Medial History Hematologic Hx - concrete pavement installer: Hematologic Medical Hx - machine stuffer Hx of Blood Transfusion No 07/27/24 11:45 Hx of Transfusion in last 3 No 07/27/24 11:45 Months Date of Last Transfusion (if within last 3 months) Ever experience any problems No 07/27/24 11:45 with transfusion(s)? Specify any problems Hx of Preganancy in last 3 N/A 07/27/24 11:45 Months Nurse Filling Out Transfusion VCHRISTIN 07/27/24 11:45 & Questions: Date: 07/27/24 07/27/24 11:45 Time: 11:47 07/27/24 11:45 Patient unable to answer at this time (ie. confused, unrespo /Reproduction History /Reproductive History - concrete pavement installer: /Reproductive Hx- concrete pavement installer Hx Now Gestational Age (in weeks): EDC: Hx Hx Para Hx Section SAB No 07/27/24 11:45 Active Medications Active Medications: Current Medications Generic Name Dose Route Start Last Admin Trade Name Freq PRN Reason Stop Dose Admin Lactated Ringer's 1,000 mls @ 15 mls/hr 07/29/24 05:45 07/29/24 06:08 IV 15 mls/hr .Q48H ISAI Administration PFSH Medical History Impingement of left shoulder Alcohol use Redness of skin Back pain Injury of head and neck Gastric reflux Non-smoker Shortness of breath on exertion Leg cramps History of pain when walking History of stress test Left shoulder pain Bilateral primary osteoarthritis of knee Left knee pain Right knee pain Rupture of left long head biceps tendon Home Medications ?Medication ?Instructions ?Recorded ?Last Taken ?Type omeprazole 20 mg capsule,delayed 20 mg PO DAILY 07/28/24 History release ascorbic acid (vitamin C) 1,000 mg 1,000 mg PO DAILY 0 05/12/23 07/28/24 History tablet,extended release (C Complex) Allergy/AdvReac Type Severity Reaction Status Date / Time Penicillins AdvReac Severe Hives Verified 07/29/24 05:56 Surgical History S/P appendectomy History of shoulder surgery Hx of vasectomy Social History Smoking Status: Never smoker alcohol intake: current alcohol intake frequency: a few times a week Review of Systems (Anesthesia) ROS Narrative System reviewed and no additional complaints, except as documented. Physical Exam Const alert and oriented x3 Orientation / Consciousness: awake HEENT dentition normal Neck full ROM Resp normal respiratory effort, normal air movement and clear to auscultation stephanie aterally Cardio regular rate Extremity full ROM Neuro oriented x3 and moves all extremities
[2024-07-29 06:30] VITALS: BP 105/76; PULSE 64; RESP 18; TEMP 36.1; O2SAT 97
--- NOTE | 2024-07-29 06:30 | COLBX_PTH ---
PATIENT: REGI PHIPPS LOC: EN U#:[id number] AGE/SX: 54/M ROOM: RE07/29/[address]: Dr. Ricki Pinto DO : 1970 BED: DIS: 07/29/2024 SPEC #: [id number] RECD: 07/29/24 09:11 STATUS: TYRESE GRAHAMJonnie #: [id number] MELODY: 07/29/24 06:[address]: Ricki Pinto DEPT: SURGICAL PATHOLOGY RECD BY: Johnson Watson ENTERED: 07/29/24 10:15 SP TYPE: COLON BX SEE DR: Dr. Jeremiah Valdez MD Tissues: A - Cecum, NOS B - Rectum, NOS Procedures: Surgery Specimen Level IV HEADER OPERATION: Colonoscopy, polypectomy, bipolar electrohemostasis PRE-OP DIAGNOSIS: Screening for colon cancer, diverticulitis TISSUE SUBMITTED: A- Cecal polyp, B- Rectal polyp MICROSCOPIC DIAGNOSIS A. Colon, cecum, polyp, biopsy: * Sessile serrated lesion. B. Rectum, polyp, biopsy: * Prolapse features with mucosal lymphoid aggregate. MICROSCOPIC DESCRIPTION Slides are reviewed. GROSS DESCRIPTION A. Received in formalin in a container labeled with the patient's name, date of , and cecal polyp are multiple lang-pink fragments of mucosal tissue measuring 0.8 x 0.6 x 0.3 cm in aggregate. Submitted in toto in A1. B. Received in formalin in a container labeled with the patient's name, date of , and rectal polyp are 2 lang-pink fragments of mucosal tissue each measuring 0.3 x 0.3 x 0.2 cm. Submitted in toto in B1. [facility] 07-29-2024 CPT:37165o9
--- NOTE | 2024-07-29 06:46 | HP.PCM_ITS ---
HPI - General General Date of Admission: 07/29/24 Date of Service: 07/29/24 Chief Complaint: Screening colonoscopy HPI Narrative REGI PHIPPS, is a 54 M who presents today for screening colonoscopy. *[facility]I established pt reports that when he had his appendix removed in February 2024 he was told that diverticulosis was seen on his CT scan. Pt reports he has never had a colonoscopy. States that he has daily bowel movements; occasional diarrhea depending on what he eats. Reports HB is managed with Omeprazole 20mg daily. [facility] Medical History Impingement of left shoulder Alcohol use Redness of skin Back pain Injury of head and neck Gastric reflux Non-smoker Shortness of breath on exertion Leg cramps History of pain when walking History of stress test Left shoulder pain Bilateral primary osteoarthritis of knee Left knee pain Right knee pain Rupture of left long head biceps tendon Home Medications ?Medication ?Instructions ?Recorded ?Last Taken ?Type omeprazole 20 mg capsule,delayed 20 mg PO DAILY 07/28/24 History release ascorbic acid (vitamin C) 1,000 mg 1,000 mg PO DAILY 0 05/12/23 07/28/24 History tablet,extended release (C Complex) Allergy/AdvReac Type Severity Reaction Status Date / Time Penicillins AdvReac Severe Hives Verified 07/29/24 05:56 Surgical History S/P appendectomy History of shoulder surgery Hx of vasectomy Social History Smoking Status: Never smoker alcohol intake: current alcohol intake frequency: a few times a week ROS Constitutional Constitutional: Denies fatigue, fever(s), poor appetite, weight gain or weight loss Gastrointestinal Gastrointestinal: Denies belching, bloating, change in bowel habits, change in stool character, chewing difficulty, coffee ground emesis, constipation, cramping, diarrhea, dyspepsia, dysphagia, early satiety, excessive flatus, fecal incontinence, heartburn, hematemesis, hematochezia, hemorrhoids, loose stools, melena, nausea, odynophagia, rectal bleeding, tenesmus, vomiting or weight changes Vital Signs Vital Signs Vital Signs: 07/29/24 05:53 07/29/24 05:57 07/29/24 06:30 Temperature 96.9 F L 96.9 F L Temperature Source Temporal Pulse Rate 64 64 Respiratory Rate 18 18 Respiratory Pattern Normal Blood Pressure 105/76 105/76 Blood Pressure Mean 85 Blood Pressure Source Monitor Blood Pressure Position Semi-Fowlers Blood Pressure Location Left Arm Pulse Ox 97 97 Oxygen Delivery Method Room Air Room Air Weight Weight: 203 lb 12.8 oz Body Mass Index (BMI) 27.6 Physical Exam Const alert, oriented x3, no apparent distress and healthy appearing General Appearance: cooperative GI normal to inspection, nondistended, normoactive bowel sounds, soft to palpation, non-tender and non-distended Percussion: normal to percussion Rectal Exam: deferred Assessment & Plan Assessment/Plan (1) Screening for colon cancer: (2) Diverticulosis: PLAN: Assessment and Plan Assessment and Plan (1) Diverticulosis: Status: Acute (2) Screening for colon cancer: Status: Acute Plan: 3 y/o M I am following s/p laparoscopic appendectomy by Dr. Moise on 03/20/24. Patient tolerated the procedure well. Patient denies nausea, vomiting, fever since the procedure. He notes appetite has returned to normal and bowel habits have returned to normal. He denies any incisional and abdominal pain. The pathology demonstrated acute appendicitis. He comes in today because his CT scan abdomen pelvis had shown diverticulosis. He does have some intermittent bloating but no daily abdominal pain cramping or blood per rectum. His stools have been normal as long as he eats fiber. He has no family history of colon cancer or colon polyps. He never had a colonoscopy in the past. He should undergo colonoscopy to evaluate his GI tract status post appendectomy. He was explained alternatives, risk and benefits do not withstanding bleeding, infection, sepsis, perforation, need return to . He will have an ASA of 3.
[2024-07-29 07:20] VITALS: BP 105/76; BP 111/82; PULSE 61; PULSE 63; RESP 16; TEMP 36.2; O2SAT 96; O2SAT 97
--- NOTE | 2024-07-29 07:20 | PCM.POST.ANE ---
Anesthesia: Postop Eval I Current Vital Signs Temperature: 97.1 F Pulse Rate: 63 Blood Pressure: 111/82 Respiratory Rate: 16 Pulse Ox: 96 Oxygen Delivery Method: Room Air Assessment Airway patent: Yes Spontaneous unlabored respirations: Yes Mental status: Awake and Calm nausea: No Vomiting: No Anesthesia Complication: No Fluid Hydration Crystalloid volume administer (ml): 300 Total IV fluid infused: 300 Progress Note Anesthesia document: Postop Eval 1 completed: Yes
[2024-07-29 07:25] VITALS: BP 105/76; BP 113/84; PULSE 60; RESP 16; O2SAT 99
--- NOTE | 2024-07-29 07:26 | OP.CCLET_ITS ---
07/29/2024 Juan Valdez [address] [place] [address] Re : Colonoscopy procedure for Joesph Lai Dear Dr. Valdez This procedure was performed on Monday, July 29, 2024. My impressions and recommendations are as follows: Impressions : - Diverticulosis in the recto-sigmoid colon and in the sigmoid colon. - Two 8 mm polyps in the rectum and in the cecum, removed with a jumbo cold forceps. Resected and retrieved. - One 4 mm polyp at the recto-sigmoid colon. Treated with a heater probe. Recommendations : - Repeat colonoscopy in 5 years for surveillance. - Continue present medications. My findings are described in the full procedure note, which is enclosed. If I can be of further assistance, please feel free to contact me at . Sincerely, Ricki Pinto, 07/29/2024 7:25:09 AM This report has been signed electronically.
--- NOTE | 2024-07-29 07:26 | OP.COLON_ITS ---
Patient Name: Joesph Lai Procedure Date: 07/29/2024 6:38 AM Date of : 1970 Age: 54 Procedure: Colonoscopy Indications: Screening for colorectal malignant neoplasm Providers: Ricki Pinto DO Referring MD: Juan Valdez Medicines: Monitored Anesthesia Care Patient Profile: This is a 54 year old male. Refer to note in patient chart for documentation of history and physical. Last Colonoscopy: none. The patient's first colonoscopy is today. Complications: No immediate complications. Procedure: Pre-Anesthesia Assessment: - Prior to the procedure, a History and Physical was performed, and patient medications and allergies were reviewed. The patient is competent. The risks and benefits of the procedure and the sedation options and risks were discussed with the patient. All questions were answered and informed consent was obtained. Patient identification and proposed procedure were verified by the physician in the pre-procedure area. Mental Status Examination: alert and oriented. Airway Examination: normal oropharyngeal airway and neck mobility. Respiratory Examination: clear to auscultation. CV Examination: normal. Prophylactic Antibiotics: The patient does not require prophylactic antibiotics. Prior Anticoagulants: The patient has taken no anticoagulant or antiplatelet agents except for NSAID medication. ASA Grade Assessment: II - A patient with mild systemic disease. After reviewing the risks and benefits, the patient was deemed in satisfactory condition to undergo the procedure. The anesthesia plan was to use monitored anesthesia care (MAC). Immediately prior to administration of medications, the patient was re-assessed for adequacy to receive sedatives. The heart rate, respiratory rate, oxygen saturations, blood pressure, adequacy of pulmonary ventilation, and response to care were monitored throughout the procedure. The physical status of the patient was re-assessed after the procedure. After I obtained informed consent, the scope was passed under direct vision. Throughout the procedure, the patient's blood pressure, pulse, and oxygen saturations were monitored continuously. The was introduced through the anus and advanced to the cecum, identified by appendiceal orifice and ileocecal valve. The colonoscopy was performed without difficulty. The patient tolerated the procedure well. The quality of the bowel preparation was adequate. The ileocecal valve, appendiceal orifice, and rectum were photographed. Scope In: 6:56:39 AM Scope Withdrawal Time 0 hours 14 minutes 26 seconds Scope Out: 7:14:38 AM Total Procedure Duration Time 0 hours 17 minutes 59 seconds Findings: The perianal and digital rectal examinations were normal. A few small-mouthed diverticula were found in the recto-sigmoid colon and sigmoid colon. Two sessile polyps were found in the rectum and cecum. The polyps were 8 mm in size. These polyps were removed with a jumbo cold forceps. Resection and retrieval were complete. Verification of patient identification for the specimen was done. Estimated blood loss was minimal. A 4 mm polyp was found in the recto-sigmoid colon. The polyp was sessile. Coagulation for destruction of remaining portion of lesion using heater probe was successful. Estimated blood loss was minimal. Impression: - Diverticulosis in the recto-sigmoid colon and in the sigmoid colon. - Two 8 mm polyps in the rectum and in the cecum, removed with a jumbo cold forceps. Resected and retrieved. - One 4 mm polyp at the recto-sigmoid colon. Treated with a heater probe. Recommendation: - Repeat colonoscopy in 5 years for surveillance. - Continue present medications. Procedure Code(s): --- Professional --- 47499, Colonoscopy, flexible; with ablation of tumor(s), polyp(s), or other lesion(s) (includes pre- and post-dilation and guide wire passage, when performed) 70678, 59, Colonoscopy, flexible; with biopsy, single or multiple CPT copyright 2021 [employer]. All rights reserved. The codes documented in this report are preliminary and upon outpatient coder review may be revised to meet current compliance requirements. Ricki Pinto DO 07/29/2024 7:25:09 AM This report has been signed electronically. Number of Addenda: 0 Note Initiated On: 07/29/2024 6:38 AM
[2024-07-29 07:30] VITALS: BP 105/76; BP 116/80; PULSE 61; RESP 16; TEMP 36.4; O2SAT 99
[2024-07-29 08:01] VITALS: BP 105/76
--- NOTE | 2024-07-29 09:49 | POSTOPAN2_ITS ---
Anesthesia Postop Eval I Sum Postop Eval Completion status Anesthesia document: Postop Eval 1 completed: Yes Anesthesia Postop Eval I Summary Anesthesia Postop Eval I Summary: Anesthesia Postop Eval I: Assessment Summary Airway patent Yes 07/29/24 07:20 [email or web address] Spontaneous unlabored Yes 07/29/24 07:20 SUPERVISOR [email or web address] respirations Mental status Awake,Calm 07/29/24 07:20 SUPERVISOR [email or web address] nausea No 07/29/24 07:20 SUPERVISOR [email or web address] Vomiting No 07/29/24 07:20 SUPERVISOR [email or web address] Anesthesia Postop Eval I: Fluid Summary Crystalloid volume administer 300 07/29/24 07:20 SUPERVISOR [email or web address] (ml) Colloids volume administered ( ml) Blood Product volume administered (ml) Total IV fluid infused 300 07/29/24 07:20 SUPERVISOR [email or web address] Anesthesia Postop Eval I: Summary Notes Anesthesia Complication No 07/29/24 07:20 SUPERVISOR [email or web address] Anesthesia Complication Comment: Post-operative progress note Anesthesia: Postop Eval II Evaluation Mental status: Awake and Calm Pain Level: 1 nausea: No Vomiting: No Complications Anesthesia Complication: No
--- NOTE | 2024-07-29 09:49 | PCM.POSTANE2 ---
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 Spontaneous unlabored Yes 07/29/24 07:20 [email or web address] respirations Mental status Awake,Calm 07/29/24 07:20 [email or web address] nausea No 07/29/24 07:20 [email or web address] Vomiting No 07/29/24 07:20 [email or web address] Anesthesia Postop Eval I: Fluid Summary Crystalloid volume administer 300 07/29/24 07:20 [email or web address] (ml) Colloids volume administered ( ml) Blood Product volume administered (ml) Total IV fluid infused 300 07/29/24 07:20 [email or web address] Anesthesia Postop Eval I: Summary Notes Anesthesia Complication No 07/29/24 07:20 [email or web address] [email or web address] Anesthesia Complication Comment: Post-operative progress note Anesthesia: Postop Eval II Evaluation Mental status: Awake and Calm Pain Level: 1 nausea: No Vomiting: No Complications Anesthesia Complication: No
== END 2024-07-29 08:00 | disposition home or self-care (01) ==
LOC: EN 05:29 → AC 05:29
PROVIDERS: PCP Family Medicine; Referring Provider Family Medicine; Visit Provider Internal Medicine Gastroenterology
PROC: 0DJD8ZZ Inspection of Lower Intestinal Tract, Via Natural or Artificial Opening Endoscopic (ICD-10-PCS; CPT 45378; principal; 2024-07-29 06:25)
DX: Z12.11 Encounter for screening for malignant neoplasm of colon (principal); K57.30 Diverticulosis of large intestine without perforation or abscess without bleeding; D12.0 Benign neoplasm of cecum; K62.1 Rectal polyp; Z79.899 Other long term (current) drug therapy; Z90.49 Acquired absence of other specified parts of digestive tract
CPT/HCPCS: 45388; 45380; 88305; C1889